=== PATIENT | female | born 1940 | race Caucasian/White ===

== ENCOUNTER 2021-08-15 10:45 | Emergency (ER) | payer MEDICARE, MEDICAID, SELFPAY ==
--- NOTE | ~2021-08-15 | XR_ITS ---
EXAMINATION: XR wrist RT min 3V DATE: 08/15/2021 11:49 INDICATION: Right wrist pain post fall TECHNIQUE: Posteroanterior, ulnar deviation, oblique, and lateral views of the right wrist were obtai tameka. COMPARISON: none FINDINGS: Comminuted intra-articular fracture of the distal right radius with dorsal predominant impaction resu lting in approximately 20 degrees dorsal tilt of the distal articular surface. There is approximately 2 mm fracture gap and 1 mm incongruity at the articular surface at the ulnar side of the scaphoid fo ssa. There appears to be dorsal intercalated segment instability (DISI) along with severe osteoarthri tis at the radioscaphoid articulation of the wrist joint consistent with secondary scapholunate advan chandni collapse (SLAC) wrist. Additional moderate osteoarthritis at the first carpometacarpal joint. Cho ndrocalcinosis at the triangular fibrocartilage complex. IMPRESSION: 1. Comminuted intra-articular fracture of the distal right radius with dorsal predominant impaction. 2. 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 Reviewed, dictated and finalized at location A. IMPRESSION: 1. Comminuted intra-articular fracture of the distal right radius with dorsal p redominant impaction. 2. 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
[2021-08-15 10:52] VITALS: BP 139/77; PULSE 67; RESP 18; TEMP 36.6; O2SAT 97
--- NOTE | 2021-08-15 11:57 | ED.UPPEXIN ---
HPI - Extremity Injury (Upper) General Chief Complaint: Extremity Injury, Upper Stated Complaint: ambulance Time Seen by Provider: 08/15/21 10:47 Source: patient, EMS and RN notes reviewed Mode of arrival: EMS Limitations: no limitations History of Present Illness MD complaint: injury to: right and wrist Onset (ago): hour(s) (1) Other injuries: none Place: home Severity scale (1-10): 9 Relieving factors: immobilization Exacerbating factors: movement of extremity Context: fall Associated symptoms: denies other symptoms Related Data Home Medications Medication Instructions Recorded Confirmed acetaminophen [Pain Relief] 500 mg PO Q4-6H PRN 10/29/19 08/15/21 carvedilol 3.125 mg PO BID 10/29/19 08/15/21 escitalopram oxalate 20 mg PO DAILY 10/29/19 08/15/21 potassium chloride 10 meq PO DAILY 10/29/19 08/15/21 pravastatin 40 mg PO DAILY 10/29/19 08/15/21 quetiapine 25 mg PO HS 10/29/19 08/15/21 bupropion HCl 75 mg PO DAILY 08/15/21 08/15/21 calcium carbonate-vitamin D3 2 tablet PO DAILY 08/15/21 08/15/21 [Calcium + D] furosemide 40 mg PO TID 08/15/21 08/15/21 Allergies Allergy/AdvReac Type Severity Reaction Status Date / Time clonazepam Allergy Intermediate Verified 09/03/11 14:24 Hay Allergy Intermediate Uncoded 05/08/18 14:28 Review of Systems Review of Systems: All systems reviewed & are unremarkable except as noted in HPI and below Musculoskeletal: Musculoskeletal: Reports as per HPI (painful right wrist) PMFSH Past Medical History Medical History (Updated 08/15/21 @ 13:16 by Jose Negro MD) Anxiety Depression Dyslipidemia Hypertension Stomach neoplasm Surgical History Surgical History H/O tubal ligation History of appendectomy History of bilateral knee arthroplasty Social History Social History Smoking status: Never smoker Alcohol intake: never Substance use: never Exam Const: General: healthy appearing, no acute distress and alert Nutritional Appearance: well nourished Orientation/consciousness: patient oriented x3 Limitations: no limitations HENMT: Head: normal to inspection Ears: external ears normal and TM's normal bilaterally General nose exam: Normal external nose present and Normal nares present Face and sinus: normal facial exam Mouth: Yes lip normal and Yes moist mucous membranes Teeth and gingiva: dentition normal Eyes: Conjunctivae: conjunctivae normal Pupils: Equal, round and reactive pupils present EOM: EOMs intact bilaterally Neck: Neck: normal visual inspection and no lymphadenopathy Chest: Chest palpation & inspection: normal inspection of the chest Resp: Effort & Inspection: normal respiratory effort Auscultation: clear to auscultation bilaterally Cardio: Rate: regular rate Rhythm: regular rhythm GI: GI Palp: Yes Soft to palpation and No Tenderness to palpation present (GI) Percussion: Yes normal to percussion Auscultation: normal bowel sounds : General: Yes bladder normal to palpation and Yes no CVA tenderness Back/Spine/Pelvis: Back: no CVA tenderness Skin: General skin exam: normal color Rashes: no rashes Wounds: no wounds Neuro: General: patient oriented x3, moves all extremities, no meningeal signs, no focal motor deficits and CN's II-XI intact bilaterally Extrem: Other: mildly swollen right wrist with minimal radial deformity. no acute neurovascular deficit. no other acute injury. Psych: Appearance: grossly normal and well kempt Mental Status: mental status grossly normal Affect: normal affect Attitude: cooperative Thought content: Yes Normal thought content present Course Course Emergency Course: Pt was stable in the ED, less painful Reevaluation(s) Date: 08/15/21 Time: 11:41 Vital Signs Vital signs: Vital Signs Temperature 36.6 C 08/15/21 10:52 Pulse Rate 67 08/15/21 10:52 Respiratory Rate 18
[2021-08-15] MEDS: KETOROLAC (*BKC) 60 MG/2 ML VIAL IM (12:08)
[2021-08-15 13:18] VITALS: BP 146/71; PULSE 80; RESP 16; O2SAT 98
== END 2021-08-15 13:34 | disposition home or self-care (01) ==
PROVIDERS: Emergency Provider Emergency Medicine; PCP Family Medicine
DX: S52.91XA Unspecified fracture of right forearm, initial encounter for closed fracture (principal); W19.XXXA Unspecified fall, initial encounter; E78.5 Hyperlipidemia, unspecified; I10 Essential (primary) hypertension
CPT/HCPCS: 29125; 73110; 99283; 99284; A4565; J1885

== ENCOUNTER 2021-08-28 09:43 | Outpatient (NON) | payer MEDICARE, SELFPAY ==
[2021-08-28 09:59] LABS: Hematocrit 42.2 % (35.0-42.0); Hemoglobin 13.8 g/dL (11.7-13.8); Mean Corpuscular HGB Conc 32.7 g/dL (32.0-36.0); Mean Corpuscular Hemoglobin 29.6 pg (27.0-31.0); Mean Corpuscular Volume 90.6 fL (78.0-102.0); Mean Platelet Volume 10.4 fl (9.2-11.8); Platelet Count Result 275 K/mm3 (150-420); Red Blood Count 4.66 M/mm3 (4.20-5.40); Red Cell Distribution Width 13.3 % (11.6-14.4); White Blood Count 5.8 K/mm3 (4.8-10.8)
[2021-08-28 10:23] LABS: Alanine Aminotransferase 23 U/L (14-59); Albumin Level 3.4 g/dL (3.4-5.0); Alkaline Phosphatase 129 U/L (46-116); Anion Gap 12 mmol/L (8-16); Aspartate Amino Transferase 21 U/L (15-37); Bilirubin,Total 0.5 mg/dL (0.00-1.00); Blood Urea Nitrogen 16 mg/dL (7-18); Carbon Dioxide 30 mmol/L (21-32); Chloride 102 mmol/L (98-108); Estimated Glomerular Filt Rate 51; Glucose 105 mg/dL (70-99); Osmolality Calculated 299 mOsm/kg (285-295); Potassium 3.5 mmol/L (3.5-5.1); Sodium 144 mmol/L (136-145); Total Protein 6.8 g/dL (6.4-8.2)
== END 2021-08-28 09:44 | disposition home or self-care (01) ==
LOC: CHSLAB 09:44
PROVIDERS: Visit Provider Family Medicine
DX: I10 Essential (primary) hypertension (principal)
CPT/HCPCS: 36415; 80053; 85027

== ENCOUNTER 2021-09-07 12:13 | Outpatient (CLI) | payer MEDICARE, MEDICAID, SELFPAY ==
--- NOTE | ~2021-09-07 | DEXA_ITS ---
Bone Density Report Name: Eva Alatorre Age: 80 Sex: Female Ethnicity: White Date of : 1940 Indication: postmenopausal; screening for osteoporosis; height loss; prior fracture; Referring Provider: Konrad Williamson Study: Bone densitometry was performed. Exam Date: September 07, 2021 Accession number: [id number] Bone Density: Region BMD T-score Z-score Classification AP Spine(L1-L4) 1.013 -0.3 2.5 Normal Femoral Neck (Left) 0.648 -1.8 0.6 Osteopenia Total Hip (Left) 0.760 -1.5 0.7 Osteopenia Femoral Neck (Right) 0.561 -2.6 -0.2 Osteoporosis Total Hip (Right) 0.727 -1.8 0.5 Osteopenia Femoral Neck Mean 0.605 -2.2 0.2 Osteopenia Total Hip Mean 0.743 -1.6 0.6 Osteopenia World Health Organization criteria for BMD impression classify patients as: Normal (T-score at or above -1.0), Osteopenia (T-score between -1.0 and -2.5), or Osteoporosis (T-score at or below -2.5). 10-year Fracture Risk: FRAX not reported because: Some T-score for Spine Total or Hip Total or Femoral Neck at or below -2.5 Clinical Information Provided by Patient: Has had a low trauma fracture Has used the following medications: Vitamin D, Calcium Patient maximum height was 61 Menopause Age: 43 Onset of menses at age 9 Number of children 3 Impression: The patient has established osteoporosis, based on the Right Femoral Neck T-score and the existence of a prior fracture. The patient has risk factors, including: previous fracture. Discussion: HIGH RISK OF FRACTURE. BONE DENSITY IS UNDESIRABLY LOW AT ONE OR MORE SKELETAL SITES, CONSISTENT WITH POSTMENOPAUSAL OSTEOPOROSIS. This patient's lowest T-score, in a patient who has previously fractured, meets the World Health Organization's (WHO) criteria for severe osteoporosis. In untreated patients, the risk of osteoporotic fracture increases approximately two-fold for each 1.0 SD decrease in T-score. Low bone density is not the only risk factor for fracture; also consider factors such as patient's age, frailty or poor health, risk of falling, risk of injury, previous osteoporotic fracture, family history of osteoporosis, cigarette smoking, low body weight, etc. Not everyone with low bone mineral density has osteoporosis; osteomalacia and other metabolic bone disorders should also be considered. Patients who have osteoporosis should be evaluated for specific diseases and conditions (secondary causes) that may cause or contribute to bone loss. The [place] [employer] Endocrinologists (AACE) and National Osteoporosis Foundation (NOF) recommend pharmacologic intervention for all postmenopausal women whose T-score is in this range. The patient should follow a healthful lifestyle (good nutrition with adequate calcium and vitamin D, and appropriate weight-
--- NOTE | 2021-09-07 12:21 | ECHO_ITS ---
Patient Info Name: Eva Alatorre Age: 80 years : 1940 Gender: Female Ht: 61 in Wt: 178 lbs BSA: 1.90 m2 HR: 68 bpm BP: 152 / 71 mmHg Exam Date: 09/07/2021 1:39 PM Exam Location: [facility] Patient Status: Outpatient Admit Date: 09/07/2021 Staff Ordering Physician: Konrad Williamson DO Head Chef: Armand Obrien RDCS, RT Attending Provider: Konrad Williamson DO Referring Physician: Teri BORJAS; Exam Type: CA echo doppler color flow Study Info Indications I50.9 - Heart failure, unspecified Complete two-dimensional, color flow and Doppler transthoracic echocardiogram is performed. Strain analysis performed. Summary 1. Complete two-dimensional, color flow and Doppler transthoracic echocardiogram is performed. 2. Left ventricular chamber dimension is normal. 3. Left ventricular systolic function is normal, estimated at 60-65%. 4. The left ventricular diastolic function is grade I diastolic dysfunction. 5. E/e' 6 is not elevated. 6. Global longitudinal strain is normal at -21.4%. 7. Right atrial chamber dimension is mildly enlarged. 8. There is mild aortic valve sclerosis. 9. There is moderate to severe tricuspid valve regurgitation. 10. No pulmonary hypertension, estimated pulmonary arterial systolic pressure is 36 mmHg. Left Ventricle E/e' 6 is not elevated. Global longitudinal strain is normal at -21.4%. Left ventricular chamber dimension is normal. Left ventricular systolic function is normal, estimated at 60-65%. The left ventricular diastolic function is grade I diastolic dysfunction. Right Ventricle Right ventricular systolic function is normal and with normal TAPSE 2.0 cm.. Right ventricular chamber dimension is normal. Left Atria Left atrial chamber dimension is normal. Right Atria Right atrial chamber dimension is mildly enlarged. Aortic Valve The aortic valve is trileaflet. There is mild aortic valve sclerosis. There is no aortic valve stenosis. There is no aortic valve regurgitation. Pulmonic Valve There is no pulmonic regurgitation. Mitral Valve There is no mitral valve stenosis. There is no mitral valve regurgitation. Tricuspid Valve There is moderate to severe tricuspid valve regurgitation. No pulmonary hypertension, estimated pulmonary arterial systolic pressure is 36 mmHg. Pericardium/Pleural There is no pericardial effusion. Inferior Vena Cava Normal inferior vena cava with >50% collapse upon inspiration consistent with normal right atrial pressure, 5 mmHg. Aorta The aortic root size at the sinus of Valsalva is normal. Left Ventricular Outflow Tract Name Value Normal LVOT 2D LVOT Diameter 1.9 cm LVOT Doppler LVOT Peak Velocity 77 cm/s LVOT Peak Gradient 2 mmHg LVOT Mean Gradient 1 mmHg LVOT VTI 20 cm LVOT VTI/AV VTI Ratio 0.7 LVOT Stroke Volume 58 ml Mitral Valve Name
== END 2021-09-07 12:14 | disposition home or self-care (01) ==
LOC: CHSIMG 12:19
PROVIDERS: PCP Family Medicine; Visit Provider Family Medicine
DX: Z78.0 Asymptomatic menopausal state (principal); I10 Essential (primary) hypertension
CPT/HCPCS: 77080; 93306

== ENCOUNTER 2021-10-16 09:40 | Outpatient (RCR) | payer MEDICARE, OTHER, MEDICAID, SELFPAY ==
--- NOTE | 2021-10-16 11:06 | OTOPEVAL ---
Thank you for referring Eva Alatorre to [facility].? The patient is scheduled to be seen for therapy? ____x/week for ___ weeks. Please review, sign, date and return this plan of care RAFIQ. I agree with and certify that the following plan of care is medically necessary. Referring Physician Date Admitting Provider: Attending Provider: Trisha Lawson, TIMING INSPECTOR Referring Provider: *OT Outpatient Evaluation Start: 10/16/21 08:17 Freq: Status: Active Protocol: Document 10/16/21 09:46 [facility] [place]Rec: 10/16/21 11:05 [facility] [place] [id number] Therapy Assessment Status Assessment Status Assessment Status Evaluation Outpatient Past Medical History Cardiovascular History Hx Hypercholesterolemia Yes Hx Hypertension Yes Gastrointestinal History Hx Appendectomy Yes Hx Gastroesophageal Reflux Disease Yes Musculoskeletal History Hx Osteoporosis Yes Reproductive History Hx Post Menopausal Yes Psychosocial History Hx Anxiety Yes Hx Depression Yes Other History Hx Cancer Yes: SKIN Evaluation Information Problem Diagnosis Decreased ROM and strength of the R wrist Onset 09/28/21 Cause R distal radius fracture Subjective Information Patient reports that she fell Query Text:As Reported By Patient/ and broke her R wrist but is Family unsure of when it was, states a couple months ago. Patient reports that the caregivers at assisted living have had to help her more since she fractured her wrist. Patient reports that tying her shoes and getting dressed are difficult to do. Quick DASH: 52.3% Prior Level of Function Activity Level (Last 3 Months) Hand Dominance Right Activity of Daily Living Ability Independent Indoor/Home Mobility Independent Community Mobility Needs Some Help Stairs Ability Not-Applicable Functional Cognition (Planning, Shopping Needs Some Help , Taking Medications) Cooking No Cleaning No Laundry No Shopping No Driving No Home Setting Home Type Assisted Living Facility Support Available None Pain Assessment Timing of Pain Assessment Timing of Pain Assessment Assessment Self Report Self Report Pain Level
--- NOTE | 2021-11-14 14:48 | OTOPEVAL ---
Thank you for referring Eva Alatorre to [facility] The patient is scheduled to be seen for therapy? ____x/week for ___ weeks. Please review, sign, date and return this plan of care RAFIQ. I agree with and certify that the following plan of care is medically necessary. Referring Physician Date Admitting Provider: Attending Provider: Trisha Lawson, PARAFFIN MACHINE OPERATOR Referring Provider: *OT Outpatient Evaluation Start: 10/16/21 08:17 Freq: Status: Active Protocol: Document 11/14/21 13:53 [facility] [place]Rec: 11/14/21 14:48 [facility] [id number] Therapy Assessment Status Assessment Status Assessment Status Discharge Outpatient Past Medical History Cardiovascular History Hx Hypercholesterolemia Yes Hx Hypertension Yes Gastrointestinal History Hx Appendectomy Yes Hx Gastroesophageal Reflux Disease Yes Musculoskeletal History Hx Osteoporosis Yes Reproductive History Hx Post Menopausal Yes Psychosocial History Hx Anxiety Yes Hx Depression Yes Other History Hx Cancer Yes: SKIN Evaluation Information Problem Subjective Information Patient arrives to OT this Query Text:As Reported By Patient/ date and reports that her R Family wrist hurts sometimes but overall it is doing well. She reports that she has been using it and would like to be finished with therapy. Pain Assessment Timing of Pain Assessment Timing of Pain Assessment Re-assessment Self Report Self Report Pain Level 0 Pain Score Pain Score 0: Self Report Upper Extremity Range of Motion Wrist Range of Motion Right Wrist Flexion - Active 35 Wrist Extension - Active 40 Upper Extremity Muscle Strength Testing Wrist Strength Right Wrist Flexion Strength 4+ Good + Wrist Extension Strength 4+ Good + General Exercise General Exercises Side Right Exercise Description AAROM R wrist flexion/ Query Text:Record Sets, Reps, extension, holding 20 seconds Resistance, and Position x 3 reps each direction AROM R wrist circles 1x15 in both clockwise and counter clockwise AROM R hook fist 1x10 AROM R flat fist 1x10 AROM R composite fist 1x10 AROM R intrinsic plus 1x10 1# resisting R wrist extension , 15 reps x 2 sets B wrist flexion/extension with
== END 2021-11-14 15:17 | disposition home or self-care (01) ==
LOC: CHSOT 09:40
PROVIDERS: Visit Provider Nurse Practitioner Family
DX: S52.571D Other intraarticular fracture of lower end of right radius, subsequent encounter for closed fracture with routine healing (principal)
CPT/HCPCS: 97014; 97110; 97140; 97165; G0283

== ENCOUNTER 2024-10-10 19:25 | Emergency (ER) | payer MEDICARE, MEDICAID, SELFPAY ==
--- NOTE | ~2024-10-10 | XR_ITS ---
EXAM: XR knee LT 3V DATE: 10/10/2024 20:20 HISTORY: total knee replacement 10 YRS AGO. LEFT KNEE PAIN X 1 MONTH. . COMPARISON: 09/10/2012. FINDINGS: Normal mineralization. No fracture or dislocation. No lytic or blastic lesion. Left total knee arthroplasty hardware, without complication. No erosion or periosteal change. Moderate volume milly int effusion. IMPRESSION: No acute osseous finding in the left knee. Reviewed, dictated and finalized at location K. SMISSION TESTER
--- NOTE | 2024-10-10 19:39 | ED.LOWEXIN ---
HPI - Extremity Injury (Lower) General Chief Complaint: Extremity Problem,Nontraumatic Stated Complaint: LOWER EXTREMITY PROBLEM Time Seen by Provider: 10/10/24 19:38 Source: patient Mode of arrival: ambulatory Limitations: no limitations History of Present Illness HPI Narrative: 84-year-old female, assisted living resident with a history of anxiety /depression, hypertension, dyslipidemia, diastolic CHF, bilateral knee arthroplasty presents to the ED with with a 2 week history of -- worsening left knee pain. patient is also noted to have left knee swelling with decreased range of motion. The patient has been using a walker. The pain has gotten progressively worse and is affecting her walking. No history of trauma. No history of falls. The patient had been on acetaminophen for her pain. Onset (ago): week(s) ( Two weeks) Injury: Left: knee Type of Injury: other ( no injury) Relieving factors: immobilization Exacerbating factors: weight bearing and movement Associated symptoms: able to partially bear weight Other symptoms: none Related Data Home Medications ?Medication ?Instructions ?Recorded ?Confirmed ?Last Taken ?Type calcium 600 mg (as 2 tablet PO DAILY 08/15/21 10/10/24 Unknown History carbonate)-vitamin D3 5 mcg (200 unit) tablet Lactobacillus acidoph-L.bulgaricus 1 tablet PO DAILY 10/10/24 10/10/24 Unknown History 1 million cell tablet Allergies Allergy/AdvReac Type Severity Reaction Status Date / Time clonazepam Allergy Unknown Unknown Verified 07/23/24 16:34 Hay Allergy Intermediate Unknown Uncoded 07/23/24 16:34 Review of Systems Review of Systems: All systems reviewed & are unremarkable except as noted in HPI and below Constitutional: Constitutional: Reports as per HPI and Reports no additional constitutional complaints Eyes: Eyes: Reports as per HPI and Reports no additional eye complaints ENT: Reports system reviewed and no additional complaints, except as documented and Reports as per HPI Cardiovascular: Cardiovascular: Reports as per HPI and Reports no additional cardiovascular complaints Respiratory: Respiratory: Reports as per HPI and Reports no additional respiratory complaints Gastrointestinal: Gastrointestinal: Reports as per HPI and Reports no additional gastrointestinal complaints Genitourinary: Genitourinary: Reports no additional female genitourinary complaints and Reports as per HPI Musculoskeletal: Musculoskeletal: Reports no additional musculoskeletal complaints Comments: chronic knee pain which is worse on the left side. Integumentary/Breasts: Skin/Breast: Reports system reviewed and no additional complaints, except as docu and Reports as per HPI Neurologic: Reports system reviewed and no additional complaints, except as documented Psychiatric: Psychiatric: Reports no additional psychiatric complaints and Reports as per HPI Endocrine: Endocrine: Reports no additional endocrine complaints and Reports as per HPI Hematologic/Lymphatic: Hematologic/Lymphatic: Reports no additional hematologic/lymphatic complaints and Reports as per HPI Allergic/Immunologic: Allergic/Immunologic: Reports no additional allergic/immunologic complaints and Reports as per HPI [facility] Past Medical History Medical History (Updated 10/10/24 @ 20:42 by Perez Cruz MD) Stomach neoplasm Depression Anxiety Dyslipidemia Hypertension Surgical History Surgical History History of appendectomy History of bilateral knee arthroplasty H/O tubal ligation Social History Social History Smoking status: Never smoker Alcohol intake: never Substance use: never Living arrangements: assisted living Exam Narrative: Blood pressure is stable. Afebrile. Const: General: healthy appearing Nutritional Appearance: well nourished Orientation/consciousness: patient oriented x3 Limitations: no limitations HENMT: Head: normal to inspection Ears: external ears normal Face/Nose/Sinus: Normal external nose present Face and sinus: normal facial exam Mouth: Yes Normal oral and palatal mucosa present Throat: posterior oropharynx normal Eyes: Conjunctivae: conjunctivae normal Pupils: Equal, round and reactive pupils present EOM: EOMs intact bilaterally Direct Ophthalmoscopy: no photophobia Neck: Neck: normal visual inspection, no lymphadenopathy and no meningeal signs Chest: Chest palpation & inspection: normal inspection of the chest Resp: Effort & Inspection: normal respiratory effort Auscultation: clear to auscultation bilaterally Cardio: Rate: regular rate Rhythm: regular rhythm GI: GI Palp: Yes Soft to palpation Other: No tenderness/ rigidity /rebound. : General: Yes no CVA tenderness Back/Spine/Pelvis: Back: no CVA tenderness Skin: Other: Chronic venous stasis changes both legs. Neuro: General: patient oriented x3, moves all extremities, no meningeal signs, no focal motor deficits and CN's II-XI intact bilaterally Cranial nerves: Yes Nystagmus not present Speech: normal speech Extrem: Other: Left knee-- status post total knee replacement. Left knee is swollen. Decreased range of motion. Tenderness on palpation of the knee. Psych: Mental Status: mental status grossly normal Affect: normal affect Attitude: cooperative Course Course Emergency Course: Left knee pain/swelling/ decreased range of motion. Status post total knee replacement x-ray did not show any acute finding. The patient is noted to have left knee effusion. Vital Signs Vital signs: Vital Signs Temperature 37.3 C 10/10/24 19:40 Pulse Rate 71 10/10/24 19:40 Respiratory Rate 20 10/10/24 19:40 Blood Pressure 144/56 H 10/10/24 19:40 Pulse Oximetry 95 10/10/24 19:40 Oxygen Delivery Room Air 10/10/24 19:40 Temperature 37.3 C 10/10/24 19:40 Pulse Rate 71 10/10/24 19:40 Respiratory Rate 20 10/10/24 19:40 Blood Pressure 144/56 H 10/10/24 19:40 Pulse Oximetry 95 10/10/24 19:40 Oxygen Delivery Room Air 10/10/24 19:40 MDM - Extremity Injury (Lower) MDM Narrative Medical decision making narrative: Left knee pain/effusion Differential Diagnosis Differential diagnosis: Likely other ( knee fracture. Loosening of prosthesis.) Discharge Plan Discharge Clinical Impression: Effusion of knee joint, left Knee pain, left Qualifiers: Chronicity: chronic Qualified Code(s): M25.562 - Pain in left knee Patient Disposition: Home, Self-Care Condition: Stable Instructions: Antibiotic Form, Swollen Knee Joint (ED), Knee Pain (ED) Patient Language: Dominican Prescriptions: New tramadol 50 mg tablet 50 mg PO Q6-8H PRN (Reason: pain) Qty: 10 0RF No Action calcium carbonate-vitamin D3 [Calcium + D] 600 mg(1,500mg) -200 unit Tablet 2 tablet PO DAILY acetaminophen [Tylenol] 325 mg capsule 650 mg PO Q8H PRN (Reason: pain) Qty: 30 0RF Lactobacillus acidoph-L.bulgar 1 million cell tablet 1 tablet PO DAILY loratadine [Allergy Relief (loratadine)] 10 mg tablet 10 mg PO DAILY Qty: 30 0RF potassium chloride 10 mEq tablet extended release See Rx Instructions .ROUTE .COMPLEX Qty: 30 5RF Dose Instruction: TAKE ONE TABLET BY MOUTH EVERY DAY --AM-- Rx Instructions: TAKE ONE TABLET BY MOUTH EVERY DAY --AM-- escitalopram oxalate 20 mg tablet See Rx Instructions .ROUTE .COMPLEX Qty: 30 5RF Dose Instruction: TAKE 1 TABLET BY MOUTH DAILY -AM- Rx Instructions: TAKE 1 TABLET BY MOUTH DAILY -AM- carvedilol 3.125 mg tablet See Rx Instructions .ROUTE .COMPLEX Qty: 60 0RF Dose Instruction: TAKE 1 TABLET BY MOUTH TWO TIMES DAILY Rx Instructions: TAKE 1 TABLET BY MOUTH TWO TIMES DAILY furosemide 40 mg tablet See Rx Instructions .ROUTE .COMPLEX Qty: 90 5RF Dose Instruction: TAKE 1 TABLET BY MOUTH 3 TIMES A DAY -ANPM- Rx Instructions: TAKE 1 TABLET BY MOUTH 3 TIMES A DAY -ANPM- bupropion HCl 75 mg tablet See Rx Instructions .ROUTE .COMPLEX Qty: 30 5RF Dose Instruction: TAKE 1 TABLET BY MOUTH DAILY -AM- Rx Instructions: TAKE 1 TABLET BY MOUTH DAILY -AM- alendronate 70 mg tablet See Rx Instructions .ROUTE .COMPLEX Qty: 4 5RF Dose Instruction: TAKE 1 TABLET BY MOUTH WEEKLY MONDAYS. TAKE BEFORE OTHER MEDS DO NOT LAY DOWN FOR 30 MINUTES.-AMM- Rx Instructions: TAKE 1 TABLET BY MOUTH WEEKLY MONDAYS. TAKE BEFORE OTHER MEDS DO NOT LAY DOWN FOR 30 MINUTES.-AMM- pravastatin 40 mg tablet See Rx Instructions .ROUTE .COMPLEX Qty: 30 5RF Dose Instruction: TAKE 1 TABLET BY MOUTH ONCE DAILY -HS- Rx Instructions: TAKE 1 TABLET BY MOUTH ONCE DAILY -HS- Follow-up/Referrals: Konrad Williamson DO [Primary Care Provider] - Time of Disposition: 20:45
[2024-10-10 19:40] VITALS: BP 144/56; PULSE 71; RESP 20; TEMP 37.3; O2SAT 95
[2024-10-10] MEDS: ONDANSETRON HCL ODT 4 MG TABLET PO (20:12)
[2024-10-10] MEDS: HYDROmorphone HCL INJ (*CRX) 2 MG/ML VIAL 0.5 MG IM (20:13)
[2024-10-10 21:00] VITALS: BP 140/85; PULSE 84; RESP 20; O2SAT 95
--- OUTSIDE RECORDS SUMMARY | 2024-10-15 03:43 | XMS_ITS | Encounter Summary ---
Author Organization [facility] - [facility] Address [address] [place] [address]. [place], [place] [id number] [place] [address] Care Team Providers Care Waste Duster Name Role Phone Konrad Williamson DO Primary Care Provider [phone] Encounter Details Date Type Department Care Team (Latest Contact Info) Description 10/24/2021 Travel Social History Tobacco Use Types Packs/Day Years Used Date Smoking Tobacco: Never Smokeless Tobacco: Never Alcohol Use Standard Drinks/Week Comments Not Currently 0 (1 standard drink = 0.6 oz pur e alcohol) Comments Unknown Sex and Gender Information Value Date Recorded Sex Assigned at Not on file Legal Sex Female 10:59 PM BRINE PROCESS OPERATOR Gender Identity Not on file Sexual Orientation Not on file COVID-19 Exposure Response Date Recorded In the last month, have you been in contact with someone who was confirmed or suspected to have Coronavirus / COVID-19? No / Unsure 10/24/2021 10:47 AM BRINE PROCESS OPERATOR documented as of this encounter Plan of Treatment Not on file documented as of this encounter Visit Diagnoses Not on filedocumented in this encounter Care Teams Waste Duster Relationship Specialty Start Date End Date Konrad Williamson DO [address] [place] [address] PCP - General FAMILY PRACTICE 08/31/21 documented as of this encounter
--- OUTSIDE RECORDS SUMMARY | 2024-10-15 03:43 | XMS_ITS | Encounter Summary ---
Author Organization [facility] Address [address] [place] [address]. [place], [place] [id number] [place] [address] Care Team Providers Care Medical Stenographer Name Role Phone Konrad Williamson DO Primary Care Provider [phone] Encounter Details Date Type Department Care Team (Latest Contact Info) Description 09/28/2021 Travel Social History Tobacco Use Types Packs/Day Years Used Date Smoking Tobacco: Never Smokeless Tobacco: Never Alcohol Use Standard Drinks/Week Comments Not Currently 0 (1 standard drink = 0.6 oz pur e alcohol) Comments Unknown Sex and Gender Information Value Date Recorded Sex Assigned at Not on file Legal Sex Female 10:59 PM CONCRETE SMOOTHER Gender Identity Not on file Sexual Orientation Not on file COVID-19 Exposure Response Date Recorded In the last month, have you been in contact with someone who was confirmed or suspected to have Coronavirus / COVID-19? No / Unsure 09/28/2021 9:14 AM CONCRETE SMOOTHER documented as of this encounter Plan of Treatment Not on file documented as of this encounter Visit Diagnoses Not on filedocumented in this encounter Care Teams Medical Stenographer Relationship Specialty Start Date End Date Konrad Williamson DO [address] [place] [address] PCP - General FAMILY PRACTICE 08/31/21 documented as of this encounter
--- OUTSIDE RECORDS SUMMARY | 2024-10-15 03:43 | XMS_ITS | Clinical Summary ---
Author Organization [facility] Address [address] [place] [address]. [place], [place] [id number] [place] [address] Care Team Providers Care Cruller Maker Name Role Phone Konrad Williamson DO Primary Care Provider [phone] Allergies Active Allergy Reactions Criticality Noted Date Comments Clonazepam Other (see comment) 08/31/2021 confussion Medications escitalopram 20 MG tablet Take 20 mg by mouth daily. Active potassium chloride CR 10 MEQ tablet Take 10 mEq by mouth 2 (two) times daily. Active buPROPion 75 MG tablet Take 75 mg by mouth 2 (two) times daily. Active furosemide 40 MG tablet Take 40 mg by mouth daily. Active calcium carb-cholecalci ferol 250-125 MG-UNIT tablet Take 1 tablet by mouth daily. Active pravastatin 40 MG tablet Take 40 mg by mouth nightly at bedtime. Active probiotic Cap capsule Take 1 capsule by mouth 3 (three) times daily with meals. Active QUEtiapine 25 MG tablet Take 25 mg by mouth nightly at bedtime. Active carvedilol 3.125 MG tablet Take 3.125 mg by mouth 2 (two) times daily. Active acetaminophen 500 MG tablet Take 500 mg by mouth every 6 (six) hours as needed for Pain. Active traMADol 50 MG tablet Take 50 mg by mouth 2 (two) times daily as needed. 08/15/2021 Active alendronate 70 MG tablet Take 70 mg by mouth daily. 09/14/2021 Active Active Problems Problem Noted Date Diagnosed Date Other closed intra-articular fracture of distal end of right radius with routine healing, subsequent encounter 08/31/2021 Family History Relation Status Comments Father Mother Social History Tobacco Use Types Packs/Day Years Used Date Smoking Tobacco: Never Smokeless Tobacco: Never Alcohol Use Standard Drinks/Week Comments Not Currently 0 (1 standard drink = 0.6 oz pur e alcohol) Comments Unknown Sex and Gender Information Value Date Recorded Sex Assigned at Not on file Legal Sex Female 10:59 PM SALES EXECUTIVE Gender Identity Not on file Sexual Orientation Not on file Last Filed Vital Signs Vital Sign Reading Time Taken Comments Blood Pressure - - Pulse - - Temperature - - Respiratory Rate - - Oxygen Saturation - - Inhaled Oxygen Concentration - - Weight 77.1 kg (170 lb) 10/24/2021 10:50 AM SALES EXECUTIVE Height 154.9 cm (5' 1 ) 10/24/2021 10:50 AM SALES EXECUTIVE Body Mass Index 32.12 10/24/2021 10:50 AM SALES EXECUTIVE Plan of Treatment Health Maintenance Due Date Last Done Comments DTaP, Tdap and Td Vaccines (1 - Tdap) 1957 Zoster Vaccines (1 of 2) 1988 RSV Immunization or 60+ Years (1 - 1-dose 60+ series) 1998 Annual Medicare Wellness Visit 2003 Pneumococcal Vaccine: 65+ Years (1 of 1 - PCV) 2003 COVID-19 Vaccine (3 - season) 2024 12/22/2020, 12/01/2020 Influenza Adult (#1) 2024 08/21/2021, 08/03/2020, 07/31/2019, Additional history exists Meningococcal Vaccine Aged Out No nadia rosemary eligible based on patient's age to complete this topic RSV Immunizations Under 20 Months Aged Out No longer eligible based on patient's age to complete this topic Insurance MEDICAID MEDICARE Advance Directives Documents on File Type Date Recorded 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
--- OUTSIDE RECORDS SUMMARY | 2024-10-15 03:43 | XMS_ITS | Encounter Summary ---
Author Organization [facility] Address [address] [place] [address]. [place], [place] [address] [place] [address] Care Team Providers Care Vacuum Cleaner Mechanic Name Role Phone Konrad Williamson DO Primary Care Provider [phone] Reason for Visit * Reason Onset Date Comments Therapy Plans 10/10/2021 Encounter Details Date Type Department Care Team (Late st Contact Info) Description 10/10/2021 Telephone [facility] [place] [id number] Carrie Santoro RNFA Therapy Plans Social History Tobacco Use Types Packs/Day Years Used Date Smoking Tobacco: Never Smokeless Tobacco: Never Alcohol Use Standard Drinks/Week Comments Not Currently 0 (1 standard drink = 0.6 oz pur e alcohol) Comments Unknown Sex and Gender Information Value Date Recorded Sex Assigned at Not on file Legal Sex Female 10:59 PM CEMENT BREAKER Gender Identity Not on file Sexual Orientation Not on file COVID-19 Exposure Response Date Recorded In the last month, have you been in contact with someone who was confirmed or suspected to have Coronavirus / COVID-19? No / Unsure 09/28/2021 9:14 AM CEMENT BREAKER documented as of this encounter Progress Notes * RENU Galvan - 10/10/2021 3:32 PM CST [facility] would like for patient to attend outpatient therapy. Order faxed at this time [phone] NT BREAKER documented in this encounter Plan of Treatment Not on file documented as of this encounter Visit Diagnoses Not on filedocumented in this encounter Care Teams Vacuum Cleaner Mechanic Relationship Specialty Start Date End Date Konrad Williamson DO [address] [place] [address] PCP - General FAMILY PRACTICE 08/31/21 documented as of this encounter
--- OUTSIDE RECORDS SUMMARY | 2024-10-15 03:43 | XMS_ITS | Encounter Summary ---
Author Organization [facility] Address [address] [place] [address]. [place] [address] [place] [address] Care Team Providers Care Aircraft Maintenance Manager Name Role Phone Konrad Williamson DO Primary Care Provider [phone] Reason for Visit * Reason Comments Physical Therapy Encounter Details Date Type Department Care Team ([facility] st Contact Info) Description 10/19/[address] [place] [address] Scanned, Documents Physical Therapy Social History Tobacco Use Types Packs/Day Years Used Date Smoking Tobacco: Never Smokeless Tobacco: Never Alcohol Use Standard Drinks/Week Comments Not Currently 0 (1 standard drink = 0.6 oz pur e alcohol) Comments Unknown Sex and Gender Information Value Date Recorded Sex Assigned at Not on file Legal Sex Female 10:59 PM SENIOR BEHAVIORAL SCIENTIST Gender Identity Not on file Sexual Orientation Not on file COVID-19 Exposure Response Date Recorded In the last month, have you been in contact with someone who was confirmed or suspected to have Coronavirus / COVID-19? No / Unsure 10/24/2021 10:47 AM SENIOR BEHAVIORAL SCIENTIST documented as of this encounter Plan of Treatment Not on file documented as of this encounter Visit Diagnoses Not on filedocumented in this encounter Care Teams Aircraft Maintenance Manager Relationship Specialty Start Date End Date Konrad Williamson DO [address] [place] [address] PCP - General FAMILY PRACTICE 08/31/21 documented as of this encounter
--- OUTSIDE RECORDS SUMMARY | 2024-10-15 03:43 | XMS_ITS | Encounter Summary ---
Author Organization [facility] Address [address] [place] [address]. [place], [place] [address] [place] [address] Care Team Providers Care Lean Manager Name Role Phone Konrad Williamson DO Primary Care Provider [phone] Encounter Details Date Type Department Care Team (Late st Contact Info) Description 10/18/2021 Orders Only [facility] [place] [address] Chris Lawson, [facility] [address] [facility] [address] Social History Tobacco Use Types Packs/Day Years Used Date Smoking Tobacco: Never Smokeless Tobacco: Never Alcohol Use Standard Drinks/Week Comments Not Currently 0 (1 standard drink = 0.6 oz pur e alcohol) Comments Unknown Sex and Gender Information Value Date Recorded Sex Assigned at Not on file Legal Sex Female 10:59 PM PEN RIDER Gender Identity Not on file Sexual Orientation Not on file COVID-19 Exposure Response Date Recorded In the last month, have you been in contact with someone who was confirmed or suspected to have Coronavirus / COVID-19? No / Unsure 09/28/2021 9:14 AM PEN RIDER documented as of this encounter Plan of Treatment Not on file documented as of this encounter Results * XR WRIST RT MIN 3V (10/24/2021 12:53 PM PEN RIDER) Anatomical Region Laterality Modality Wrist Radiographic Ting ging 10/24/2021 1:13 PM PEN RIDER Impressions 10/24/2021 1:16 PM PEN RIDER IMPRESSION: 1. Healing changes of a comminuted impacted distal radial fracture, in unchanged alignment. 2. DISI deformity. Ordered By: CHRIS LAWSON Interpreted By: Mckinley Briscoe MD, 10/24/2021 1:13 PM Narrative 10/24/2021 1:16 PM PEN RIDER Examination: XR WRIST RT MIN 3V Exam time: 10/24/2021 12:53 PM Clinical history: Right wrist fracture recheck. Comparison: 09/28/2021 Technique: PA, lateral, and oblique views of the right wrist FINDINGS: Again seen is an impacted and comminuted distal radial fracture, in unchanged alignment. Again seen is mild callus formation along the fracture lines, minimally progressed from prior. No new fracture or dislocation is identified. Degenerative changes throughout the visualized wrist and hand. DISI deformity is again noted. Procedure Note Mckinley Briscoe MD - 10/24/2021 Examination: XR WRIST RT MIN 3V Exam time: 10/24/2021 12:53 PM Clinical history: Right wrist fracture recheck. Comparison: 09/28/2021 Technique: PA, lateral, and oblique views of the right wrist FINDINGS: Again seen is an impacted and comminuted distal radial fracture,in unchanged alignment. Again seen is mild callus formation along thefracture lines, minimally progressed from prior. No new fracture ordislocation is identified. Degenerative changes throughout the visualizedwrist and hand. DISI deformity is again noted. IMPRESSION: 1. Healing changes of a comminuted impacted distal radial fracture, inunchanged alignment. 2. DISI deformity. Ordered By: CHRIS LAWSON Interpreted By: Mckinley Briscoe MD, 10/24/2021 1:13 PM Chris Lawson OPTICAL STORE MANAGER-[facility] Final Resu lt documented in this encounter Visit Diagnoses Diagnosis Other closed intra-articular fracture of distal end of right radius with routine healing, subsequent encounter- Primary Other closed intra-articular fracture of distal end of right radius with routine healing, subsequent encounter documented in this encounter Care Teams Lean Manager Relationship Specialty Start Date End Date Konrad Williamson DO [address] [place] [address] PCP - General FAMILY PRACTICE 08/31/21 documented as of this encounter
--- OUTSIDE RECORDS SUMMARY | 2024-10-15 03:43 | XMS_ITS | Encounter Summary ---
Author Organization [facility] Address [address] [place] [address]. [place], [place] [address] [place] [address] Care Team Providers Care Lead Programmer Name Role Phone Konrad Williamson DO Primary Care Provider [phone] Reason for Visit * Reason Comments Fracture DOI:08/15/2021 RIGHT radius Encounter Details Date Type Department Care Team (Late st Contact Info) Description 10/24/2021 11:00 AM ANGLE SHEAR SET UP OPERATOR Office Visit [facility] [place] [address] Trisha Lawson, SUBSCRIPTION AGENT-[address] [place] [address] Cedrick Prabhakar MD [address] [place] [address] Fracture (DOI:08/15/2021 RIGHT radius) Social History Tobacco Use Types Packs/Day Years Used Date Smoking Tobacco: Never Smokeless Tobacco: Never Alcohol Use Standard Drinks/Week Comments Not Currently 0 (1 standard drink = 0.6 oz pur e alcohol) Comments Unknown Sex and Gender Information Value Date Recorded Sex Assigned at Not on file Legal Sex Female 10:59 PM ANGLE SHEAR SET UP OPERATOR Gender Identity Not on file Sexual Orientation Not on file COVID-19 Exposure Response Date Recorded In the last month, have you been in contact with someone who was confirmed or suspected to have Coronavirus / COVID-19? No / Unsure 10/24/2021 10:47 AM ANGLE SHEAR SET UP OPERATOR documented as of this encounter Last Filed Vital Signs Vital Sign Reading Time Taken Comments Blood Pressure - - Pulse - - Temperature - - Respiratory Rate - - Oxygen Saturation - - Inhaled Oxygen Concentration - - Weight 77.1 kg (170 lb) 10/24/2021 10:50 AM ANGLE SHEAR SET UP OPERATOR Height 154.9 cm (5' 1 ) 10/24/2021 10:50 AM ANGLE SHEAR SET UP OPERATOR Body Mass Index 32.12 10/24/2021 10:50 AM ANGLE SHEAR SET UP OPERATOR documented in this encounter Progress Notes * Cedrick Prabhakar MD - 10/24/2021 11:00 AM CST Chief Complaint: Fracture (DOI:08/15/2021 RIGHT radius) History of Present Illness: Eva Alatorre is a 81-year-old female who presents to the office for Fracture (DOI:08/15/2021 RIGHT radius) Patient states things are progressing well. She notes some soreness to entire RIGHT wrist. She is wearing a velcro brace about half the time. She states she has attended about 3 OT sessions at this time. Patient will take Tylenol at bedtime for pain with good relief. Patient resides at the [facility] in [place]. ROS: See HPI for pertinent positives Problem List: Patient Active Problem List Diagnosis ??? Other closed intra-articular fracture of distal end of right radius with routine healing, subsequent encounter History: Past Medical History: Diagnosis Date ??? COVID-19 vaccine series completed ??? High cholesterol ??? Hypertension Past Surgical History: Procedure Laterality Date ??? APPENDECTOMY ??? KNEE ARTHROPLASTY Bilateral ??? TUBAL LIGATION Family History Family history unknown: Yes Family Status Relation Name Status ??? Mother ??? Father Social History Socioeconomic History ??? Marital status: Single Spouse name: Not on file ??? Number of children: Not on file ??? Years of education: Not on file ??? Highest education level: Not on file Occupational History ??? Not on file Tobacco Use ??? Smoking status: Never Smoker ??? Smokeless tobacco: Never Used Vaping Use ??? Vaping Use: Never used Substance and Sexual Activity ??? Alcohol use: Not Currently ??? Drug use: Never ??? Sexual activity: Not on file Other Topics Concern ??? Not on file Social History Narrative ??? Not on file Social Determinants of Health Financial Resource Strain: Not on file Food Insecurity: Not on file Transportation Needs: Not on file Physical Activity: Not on file Stress: Not on file Social Connections: Not on file Intimate Partner Violence: Not on file Medications: Current Outpatient Medications: ??? acetaminophen 500 MG tablet, Take 500 mg by mouth every 6 (six) hours as needed for Pain., Disp: , Rfl: ??? alendronate 70 MG tablet, Take 70 mg by mouth daily., Disp: , Rfl: ??? buPROPion 75 MG tablet, Take 75 mg by mouth 2 (two) times daily., Disp: , Rfl: ??? calcium carb-cholecalciferol 250-125 MG-UNIT tablet, Take 1 tablet by mouth daily., Disp: , Rfl: ??? carvedilol 3.125 MG tablet, Take 3.125 mg by mouth 2 (two) times daily., Disp: , Rfl: ??? escitalopram 20 MG tablet, Take 20 mg by mouth daily., Disp: , Rfl: ??? furosemide 40 MG tablet, Take 40 mg by mouth daily., Disp: , Rfl: ??? potassium chloride CR 10 MEQ tablet, Take 10 mEq by mouth 2 (two) times daily., Disp: , Rfl: ??? pravastatin 40 MG tablet, Take 40 mg by mouth nightly at bedtime., Disp: , Rfl: ??? probiotic Cap capsule, Take 1 capsule by mouth 3 (three) times daily with meals., Disp: , Rfl: ??? QUEtiapine 25 MG tablet, Take 25 mg by mouth nightly at bedtime., Disp: , Rfl: ??? traMADol 50 MG tablet, Take 50 mg by mouth 2 (two) times daily as needed., Disp: , Rfl: Allergies Allergen Reactions ??? Clonazepam Other (see comment) confussion Objective: Body mass index is 32.12 kg/m??. Last Recorded Weight 10/24/21 1050 Weight: 77.1 kg (170 lb) Physical exam: Constitutional: Alert and in no acute distress. Neurological: The patient was oriented to person, place, and time. Eyes: The sclera and conjunctiva were normal ENT: Hearing was normal. Neck: The appearance of the neck was normal. Cardiovascular: Normal pulses. Pulmonary: No respiratory distress. Skin: No injuries or skin lesion. Musculoskeletal: Right wrist demonstrates about 15 degrees of wrist extension hand 10 degrees of wrist flexion. Her finger range of motion is actually better than the left side. She has minimal deformity that is apparent Results: X-ray demonstrates satisfactory healing of an impacted shortened right distal radius fracture with mild angulation Assessment: Encounter Diagnose(s) ICD-10-CM ICD-9-CM SNOMED CT(R) 1. Other closed intra-articular fracture of distal end of right radius with routine healing, subsequent encounter S52.571D V54.12 CLOSED FRACTURE OF DISTAL END OF RADIUS Plan: I have recommended discontinuing the patient's wrist brace. She is working with physical therapy tohelp with range of motion. I not have any activity restrictions and she indicates she is doing wellin regard to pain relief. She will return as needed Follow up: Return if symptoms worsen or fail to improve. CEDRICK PRABHAKAR MD E SHEAR SET UP OPERATOR documented in this encounter Plan of Treatment Not on file documented as of this encounter Visit Diagnoses Diagnosis Other closed intra-articular fracture of distal end of right radius with routine healing, subsequent encounter- Primary documented in this encounter Care Teams Lead Programmer Relationship Specialty Start Date End Date Konrad Williamson DO [address] [place] [address] PCP - General FAMILY PRACTICE 08/31/21 documented as of this encounter
--- OUTSIDE RECORDS SUMMARY | 2024-10-15 03:43 | XMS_ITS | Encounter Summary ---
Author Organization [facility] Address [address] [place] [address]. [place], [place] [address] [place] [address] Care Team Providers Care Spacecraft Systems Engineer Name Role Phone Konrad Williamson DO Primary Care Provider [phone] Encounter Details Date Type Department Care Team (Late st Contact Info) Description 09/28/2021 9:18 AM LOAD DISPATCHER LOCAL - 09/28/2021 11:59 PM LOAD DISPATCHER LOCAL Hospital Encounter [facility] [place] 2[place] Diagnostic Imaging [address] [place] [address] Chris Lawson, [facility] [address] [facility] [place] [address] Discharge Disposition: Home or Self Care (Routine Discharge) Social History Tobacco Use Types Packs/Day Years Used Date Smoking Tobacco: Never Smokeless Tobacco: Never Alcohol Use Standard Drinks/Week Comments Not Currently 0 (1 standard drink = 0.6 oz pur e alcohol) Comments Unknown Sex and Gender Information Value Date Recorded Sex Assigned at Not on file Legal Sex Female 10:59 PM LOAD DISPATCHER LOCAL Gender Identity Not on file Sexual Orientation Not on file COVID-19 Exposure Response Date Recorded In the last month, have you been in contact with someone who was confirmed or suspected to have Coronavirus / COVID-19? No / Unsure 09/28/2021 9:14 AM LOAD DISPATCHER LOCAL documented as of this encounter Medications at Time of Discharge acetaminophen 500 MG tablet Take 500 mg by mouth every 6 (six) hours as needed for Pain. alendronate 70 MG tablet Take 70 mg by mouth daily. 09/14/2021 buPROPion 75 MG tablet Take 75 mg by mouth 2 (two) times daily. calcium carb-cholecalcife rol 250-125 MG-UNIT tablet Take 1 tablet by mouth daily. carvedilol 3.125 MG tablet Take 3.125 mg by mouth 2 (two) times daily. escitalopram 20 MG tablet Take 20 mg by mouth daily. furosemide 40 MG tablet Take 40 mg by mouth daily. potassium chloride CR 10 MEQ tablet Take 10 mEq by mouth 2 (two) times daily. pravastatin 40 MG tablet Take 40 mg by mouth nightly at bedtime. probiotic Cap capsule Take 1 capsule by mouth 3 (three) times daily with meals. QUEtiapine 25 MG tablet Take 25 mg by mouth nightly at bedtime. traMADol 50 MG tablet Take 50 mg by mouth 2 (two) times daily as needed. 08/15/2021 documented as of this encounter Plan of Treatment Not on file documented as of this encounter Procedures Procedure Name Priority Date/Time Associated Diagnosis Comments XR WRIST RT MIN 3V Routine 09/28/2021 9: 46 AM LOAD DISPATCHER LOCAL Other closed intra-articular fracture of distal end of right radius, initial encounter documented in this encounter Results * XR WRIST RT MIN 3V (09/28/2021 9:46 AM LOAD DISPATCHER LOCAL) Anatomical Region Laterality Modality Wrist Radiographic Ting ging 09/29/2021 3:18 PM LOAD DISPATCHER LOCAL Impressions 09/29/2021 3:20 PM LOAD DISPATCHER LOCAL IMPRESSION: Healing distal radial fracture in stable alignment. Otherwise stable exam. Ordered By: CHRIS LAWSON Interpreted By: Azar Lomeli MD, 09/29/2021 3:18 PM Narrative 09/29/2021 3:20 PM LOAD DISPATCHER LOCAL Examination: Right wrist. Exam time: 0900 hours. Clinical history: Fracture follow-up. Comparison: 08/31/2021. Technique: Three views. Findings: Mildly displaced and impacted comminuted intra-articular fracture of the distal radius is again evident with overall stable alignment allowing for minor differences in projection. There is some sclerosis and resorption along the fracture lines, indicating healing. No new fracture is identified. 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 No other significant bone or joint abnormality is noted. Procedure Note Azar Lomeli MD - 09/29/2021 Examination: Right wrist. Exam time: 0900 hours. Clinical history: Fracture follow-up. Comparison: 08/31/2021. Technique: Three views. Findings: Mildly displaced and impacted comminuted intra-articularfracture of the distal radius is again evident with overall stablealignment allowing for minor differences in projection. There is somesclerosis and resorption along the fracture lines, indicating healing. Nonew fracture is identified. Degenerative changes in the wrist with DISIagain evident. First CMC joint osteoarthritis again evident. No othersignificant bone or joint abnormality is noted. IMPRESSION: Healing distal radial fracture in stable alignment. Otherwise stableexam. Ordered By: CHRIS LAWSON Interpreted By: Azar Lomeli MD, 09/29/2021 3:18 PM us Chris Lawson ASSURANCE ASSOCIATE-[facility] GENERAL IMAGING Final Resu lt documented in this encounter Visit Diagnoses Diagnosis Other closed intra-articular fracture of distal end of right radius, initial encounter documented in this encounter Care Teams Spacecraft Systems Engineer Relationship Specialty Start Date End Date Konrad Williamson DO [address] [place] [address] PCP - General FAMILY PRACTICE 08/31/21 documented as of this encounter
--- OUTSIDE RECORDS SUMMARY | 2024-10-15 03:43 | XMS_ITS | Encounter Summary ---
Author Organization [facility] Address [address] [place] [address]. [place], [place] [address] [place] [address] Care Team Providers Care Magazine Keeper Name Role Phone Konrad Williamson DO Primary Care Provider [phone] Encounter Details Date Type Department Care Team (Late st Contact Info) Description 10/24/2021 10:49 AM STOREROOM KEEPER - 10/24/2021 11:59 PM STOREROOM KEEPER Hospital Encounter [facility] Diagnostic Imaging [address] [place] [address] Chris Lawson, [facility] [address] [place] [address] Discharge Disposition: Home or Self Care (Routine Discharge) Social History Tobacco Use Types Packs/Day Years Used Date Smoking Tobacco: Never Smokeless Tobacco: Never Alcohol Use Standard Drinks/Week Comments Not Currently 0 (1 standard drink = 0.6 oz pur e alcohol) Comments Unknown Sex and Gender Information Value Date Recorded Sex Assigned at Not on file Legal Sex Female 10:59 PM STOREROOM KEEPER Gender Identity Not on file Sexual Orientation Not on file COVID-19 Exposure Response Date Recorded In the last month, have you been in contact with someone who was confirmed or suspected to have Coronavirus / COVID-19? No / Unsure 10/24/2021 10:47 AM STOREROOM KEEPER documented as of this encounter Medications at [...] Comments XR WRIST RT MIN 3V Routine 10/24/2021 12 :53 PM STOREROOM KEEPER Other closed intra-articular fracture of distal end of right radius with routine healing, subsequent encounter documented in this encounter Results * XR WRIST RT MIN 3V (10/24/2021 12:53 PM STOREROOM KEEPER) Anatomical Region Laterality Modality Wrist Radiographic Ting ging 10/24/2021 1:13 PM STOREROOM KEEPER Impressions 10/24/2021 1:16 PM STOREROOM KEEPER IMPRESSION: 1. Healing changes of a comminuted impacted distal radial fracture, in unchanged alignment. 2. DISI deformity. Ordered By: CHRIS LAWSON Interpreted By: Mckinley Briscoe MD, 10/24/2021 1:13 PM Narrative 10/24/2021 1:16 PM STOREROOM KEEPER Examination: XR WRIST RT MIN 3V Exam [...] By: Mckinley Briscoe MD, 10/24/2021 1:13 PM us Chris Lawson SALES COMMUNICATIONS MANAGER-BC GENERAL IMAGING Final Resu lt documented in this encounter Visit Diagnoses Diagnosis Other closed intra-articular fracture of distal end of right radius with routine healing, subsequent encounter documented in this encounter Care Teams Magazine Keeper Relationship Specialty Start Date End Date Konrad Williamson DO [address] [place] [address] PCP - General FAMILY PRACTICE 08/31/21 documented as of this encounter
--- OUTSIDE RECORDS SUMMARY | 2024-10-15 03:44 | XMS_ITS | Encounter Summary ---
Author Organization [facility] Address [address] [place] [address]. [place] [address] [place] [address] Care Team Providers Care Brake Repairer Hydraulic Name Role Phone Unavailable Primary Care Provider Unavailabl e Encounter Details Date Type Department Care Team (Late st Contact Info) Description 09/10/[address] [facility] [address] [place] [place] [id number] Boogie Shaffer MD [address] [place] [id number] Social History Tobacco Use Types Packs/Day Years Used Date Smoking Tobacco: Never Assessed Comments Unknown Sex and Gender Information Value Date Recorded Sex Assigned at Not on file Legal Sex Female 10:59 PM ASSISTANT PROFESSOR OF ARCHAEOLOGY Gender Identity Not on file Sexual Orientation Not on file documented as of this encounter Plan of Treatment Not on file documented as of this encounter Visit Diagnoses Not on filedocumented in this encounter
--- OUTSIDE RECORDS SUMMARY | 2024-10-15 03:44 | XMS_ITS | Encounter Summary ---
Author Organization [facility] Address [facility] [place] [address] [place] [address] Care Team Providers Care Electrical Project Manager Name Role Phone Unavailable Primary Care Provider Unavailabl e Encounter Details Date Type Department Care Team (Late st Contact Info) Description 04/09/[address] [facility] [place] [address] [place] [address] Pernell Hernandez MD [address] [place] [address] Social History Tobacco Use Types Packs/Day Years Used Date Smoking Tobacco: Never Assessed Comments Unknown Sex and Gender Information Value Date Recorded Sex Assigned at Not on file Legal Sex Female 10:59 PM STAND IN Gender Identity Not on file Sexual Orientation Not on file documented as of this encounter Plan of Treatment Not on file documented as of this encounter Visit Diagnoses Diagnosis Postmenopausal bleeding documented in this encounter
--- OUTSIDE RECORDS SUMMARY | 2024-10-15 03:44 | XMS_ITS | Encounter Summary ---
Author Organization [facility] Address [address] [place] [address]. [place] [address] [place] [address] Care Team Providers Care Warehouseman Name Role Phone Unavailable Primary Care Provider Unavailabl e Encounter Details Date Type Department Care Team (Late st Contact Info) Description 08/15/[address] [facility] [address] [place] [address] Etienne Zhao MD [address] [place] [address] Social History Tobacco Use Types Packs/Day Years Used Date Smoking Tobacco: Never Assessed Comments Unknown Sex and Gender Information Value Date Recorded Sex Assigned at Not on file Legal Sex Female 10:59 PM GEOLOGICAL AIDE Gender Identity Not on file Sexual Orientation Not on file documented as of this encounter Plan of Treatment Not on file documented as of this encounter Visit Diagnoses Diagnosis Encounter for screening mammogram for malignant neoplasm of breast Other screening mammogram documented in this encounter
--- OUTSIDE RECORDS SUMMARY | 2024-10-15 03:44 | XMS_ITS | Encounter Summary ---
Author Organization [facility] Address [address] [place] [address]. [place] [address] [place] [address] Care Team Providers Care Toe Lining Closer Name Role Phone Unavailable Primary Care Provider Unavailabl e Encounter Details Date Type Department Care Team (Late st Contact Info) Description 08/08/[address] [facility] [address] [place] [id number] Boogie Shaffer MD [address] [phone] Social History Tobacco Use Types Packs/Day Years Used Date Smoking Tobacco: Never Assessed Comments Unknown Sex and Gender Information Value Date Recorded Sex Assigned at Not on file Legal Sex Female 10:59 PM EXECUTIVE SALES MANAGER Gender Identity Not on file Sexual Orientation Not on file documented as of this encounter Plan of Treatment Not on file documented as of this encounter Visit Diagnoses Not on filedocumented in this encounter
--- OUTSIDE RECORDS SUMMARY | 2024-10-15 03:44 | XMS_ITS | Encounter Summary ---
Author Organization [facility] Address [address] [place] [address]. [place], [place] [id number] [place] [address] Care Team Providers Care Jewelry Designer Name Role Phone Unavailable Primary Care Provider Unavailabl e Encounter Details Date Type Department Care Team (Late st Contact Info) Description 02/16/2014 Abstract [facility] [address] [place] [address] [place] [address] [place] [phone] Social History Tobacco Use Types Packs/Day Years Used Date Smoking Tobacco: Never Assessed Comments Unknown Sex and Gender Information Value Date Recorded Sex Assigned at Not on file Legal Sex Female 10:59 PM WEIGHT REDUCTION SPECIALIST Gender Identity Not on file Sexual Orientation Not on file documented as of this encounter Plan of Treatment Not on file documented as of this encounter Visit Diagnoses Diagnosis Examination Unspecified examination documented in this encounter
--- OUTSIDE RECORDS SUMMARY | 2024-10-15 03:44 | XMS_ITS | Encounter Summary ---
Author Organization [facility] Address [address] [place] [address]. [place] [address] [place] [address] Care Team Providers Care Nephrology Nurse Name Role Phone Unavailable Primary Care Provider Unavailabl e Encounter Details Date Type Department Care Team (Late st Contact Info) Description 04/03/[address] [facility] [address] [place] [phone] Boogie Shaffer MD [address] [phone] Social History Tobacco Use Types Packs/Day Years Used Date Smoking Tobacco: Never Assessed Comments Unknown Sex and Gender Information Value Date Recorded Sex Assigned at Not on file Legal Sex Female 10:59 PM SEC ACCOUNTANT Gender Identity Not on file Sexual Orientation Not on file documented as of this encounter Plan of Treatment Not on file documented as of this encounter Visit Diagnoses Diagnosis Other abnormal findings on radiological examination of breast documented in this encounter
--- OUTSIDE RECORDS SUMMARY | 2024-10-15 03:44 | XMS_ITS | Encounter Summary ---
Author Organization [facility] Address [address] [place] [address]. [place] [address] [place] [address] Care Team Providers Care Char House Supervisor Name Role Phone Unavailable Primary Care Provider Unavailabl e Encounter Details Date Type Department Care Team (Late st Contact Info) Description 05/31/2018 Abstract [facility] [address] [place] [address] Etienne Zhao MD [address] [place] [phone] Boogie Shaffer MD [address] [place] [address] Social History Tobacco Use Types Packs/Day Years Used Date Smoking Tobacco: Never Assessed Comments Unknown Sex and Gender Information Value Date Recorded Sex Assigned at Not on file Legal Sex Female 10:59 PM DISTRICT MANAGER MAJOR ACCOUNTS SALES Gender Identity Not on file Sexual Orientation Not on file documented as of this encounter Plan of Treatment Not on file documented as of this encounter Procedures Procedure Name Priority Date/Time Associated Diagnosis Comments VITAMIN B-12 Routine 06/01/2018 5:32 AM CDT BASIC METABOLIC PANEL Routine 06/01/2018 5:32 AM CDT CBC W/DIFF AUTOMATED Routine 06/01/2018 5:32 AM CDT THYROID STIM HORMONE TSH Routine 06/01/2018 5:32 AM CDT URINALYSIS WI REFLEX TO CULTURE STAT 05/31/2018 5:00 PM CDT COMPREHENSIVE METABOLIC PANEL STAT 05/31/2018 4:57 PM CDT CBC W/DIFF AUTOMATED STAT 05/31/2018 4:57 PM CDT documented in this encounter Results * THYROID STIM HORMONE, TSH (06/01/2018 5:32 AM CDT) TSH 1.242 0.350 - 4.940 uIU/ML 06/01/2018 6:38 AM CDT [facility] SERUM OR PLASMA SPECIMEN / Unknown 06/01/2018 5:32 AM CDT 06/01/2018 5:49 AM CDT us Generic Conversion Md [facility] Final R esult [facility] [address] [place] [address], * (ABNORMAL) CBC W/DIFF AUTOMATED (06/01/2018 5:32 AM CDT) WBC 6.8 4.5 - 10.8 x10'3/uL 06/01/2018 7:28 AM CDT [facility] RBC 4.62 4.10 - 5.40 x10'6/uL 06/01/2018 7:28 AM CDT [facility] HGB 13.2 12.0 - 16.0 G/DL 06/01/2018 7:28 AM CDT [facility] HCT 41.5 36.0 - 47.0 % 06/01/2018 7:28 AM CDT [facility] MCV 89.8 78.0 - 100.0 FL 06/01/2018 7:28 AM CDT [facility] MCH 28.6 27.0 - 31.0 PG 06/01/2018 7:28 AM CDT [facility] MCHC 31.8(L) 33.0 - 36.0 G/DL 06/01/2018 7:28 AM CDT [facility] RDW 14.1 11.5 - 14.5 % 06/01/2018 7:28 AM CDT [facility] PLT 177 150 - 350 x10'3/uL 06/01/2018 7:28 AM CDT [facility] MPV 11.3(H) 7.4 - 10.4 FL 06/01/2018 7:28 AM CDT [facility] SEG NEUTROPHILS 59.3 % 8 7:28 AM CDT [facility] LYMPHOCYTES 24.3 % 06/01/2018 7:28 AM CDT [facility] MONOCYTES 11.4 % 06/01/2018 7:28 AM CDT [facility] EOSINOPHILS 3.4 % 06/01/2018 7:28 AM CDT [facility] BASOPHILS 1.0 % 06/01/2018 7:28 AM CDT [facility] IMMATURE GRANS % 0.6 % 06/01/20 18 7:28 AM CDT [facility] NRBC 0.0 % 06/01/2018 7:28 AM CDT [facility] ABS. NEUTROPHILS 4.04 1.60 - 8.30 x10'3/uL 06/01/2018 7:28 AM CDT [facility] ABS. LYMPHOCYTES 1.66 0.80 - 4.70 x10'3/uL 06/01/2018 7:28 AM CDT [facility] ABS. MONOCYTES 0.78 0.00 - 1.50 x10'3/uL 06/01/2018 7:28 AM CDT [facility] ABS. EOSINOPHILS 0.23 0.00 - 0.40 x10'3/uL 06/01/2018 7:28 AM CDT [facility] ABS. BASOPHILS 0.07 0.00 - 0.20 x10'3/uL 06/01/2018 7:28 AM CDT [facility] ABS. IMMATURE GRANULOCYTES 0.04(H) 0.00 - 0.03 x10'3/uL 06/01/2018 7:28 AM CDT [facility] ABS. NUCLEATED RBC'S 0.00 0.00 x10'3/uL 06/01/2018 7:28 AM CDT [facility] OTHER (type in comments) 06/01/2018 5:32 AM CDT 06/01/2018 5:49 AM CDT Comment:WHOLE BLOOD SAMPLE us Generic Conversion Md [facility] Final R esult [facility] [address] [place] [address], * (ABNORMAL) BASIC METABOLIC PANEL (06/01/2018 5:32 AM CDT) GLUCOSE 96 70 - 99 MG/DL 06/01/2018 6:13 AM CDT [facility] BUN 21(H) 10 - 20 MG/DL 06/01/2018 6:13 AM CDT [facility] CREATININE S/P/B 0.74 0.57 - 1.11 MG/DL 06/01/2018 6:13 AM CDT [facility] SODIUM S/P/B 141 136 - 145 MMOL/L 06/01/2018 6:13 AM CDT [facility] POTASSIUM S/P/B 4.0 3.5 - 5.1 MMOL/L 06/01/2018 6:13 AM CDT [facility] CHLORIDE S/P/B 108(H) 98 - 107 MMOL/L 06/01/2018 6:13 AM CDT [facility] CO2 26.0 22.0 - 29.0 MMOL/L 06/01/2018 6:13 AM CDT [facility] CALCIUM S/P/B 9.1 8.4 - 10.2 MG/DL 06/01/2018 6:13 AM CDT [facility] EGFR NON-AFR. AMER. >60 >60 ML/MIN/1.7 3 M2 06/01/2018 6:13 AM CDT [facility] EGFR AFR. AMER. >60 >60 ML/MIN/1.7 3 M2 06/01/2018 6:13 AM CDT [facility] ANION GAP 7.0 7 - 16 MMOL/L 06/01/2018 6:13 AM CDT [facility] 06/01/2018 5:32 AM CDT 06/01/2018 5:49 AM CDT us Generic Conversion Md [facility] Final R esult [facility] [address] [place] [address], [place] [phone] * VITAMIN B-12 (06/01/2018 5:32 AM CDT) VITAMIN B12 S/P/B 493 193 - 986 PG/ML 06/01/2018 10:38 PM CDT [facility] SERUM SPECIMEN / Unknown 06/01/2018 5:32 AM CDT 06/01/2018 5:49 AM CDT us Generic Conversion Md [facility] Final R esult [facility] [address] [place] [address], [place] [phone] [id number] * (ABNORMAL) URINALYSIS WI REFLEX TO CULTURE (05/31/2018 5:00 PM CDT) COLOR (U) DARK YELLOW 05/31/2018 5:21 PM CDT [facility] TRANSPARENCY CLEAR 05/31/2018 5:21 PM CDT [facility] SPECIFIC GRAVITY (U) 1.030(H) 1.000 - 1.025 05/31/2018 5:21 PM CDT [facility] Comment:EQUAL TO OR GREATER THAN U PH 5.5 5.0 - 8.0 05/31/2018 5:21 PM CDT [facility] LEUKOCYTES (U) NEGATIVE NEGATIVE 05/31/2018 5:21 PM CDT [facility] NITRITES NEGATIVE NEGATIVE 05/31/2018 5:21 PM CDT [facility] PROTEIN (U) NEGATIVE NEGATIVE 05/31/2018 5:21 PM CDT [facility] URINE GLUCOSE NEGATIVE NEGATIVE 05/31/2018 5:21 PM CDT [facility] KETONES MG/DL (U) NEGATIVE NEGATIVE 05/31/2018 5:21 PM CDT [facility] UROBILINOGEN 0.2 <1.0 EU/DL 05/31/2018 5:21 PM CDT [facility] BILIRUBIN (U) NEGATIVE NEGATIVE 05/31/2018 5:21 PM CDT [facility] BLOOD (U) TRACE(A) NEGATIVE 05/31/2018 5:21 PM CDT [facility] WBC/HPF 0-5 0 - 5 /HPF 05/31/2018 5:21 PM CDT [facility] EPI/HPF MANY /LPF 05/31/2018 5:21 PM CDT [facility] BACTERIA (U) TRACE /HPF 05/31/2018 5:21 PM CDT [facility] MUCUS PRESENT 05/31/2018 5:21 PM CDT [facility] CULTURE & SENSITIVITY INDICATED? NOT INDICATED 05/31/2018 5:21 PM CDT [facility] OTHER (type in comments) 05/31/2018 5:00 PM CDT 05/31/2018 5:13 PM CDT Comment:URINE SPECIMEN~URINE SPECIMEN us Generic Conversion Md [facility] URINE ORDERABLES Final Result [facility] [address] [place] [address], * (ABNORMAL) COMPREHENSIVE METABOLIC PANEL (05/31/2018 4:57 PM CDT) GLUCOSE 91 70 - 99 MG/DL 05/31/2018 5:58 PM CDT [facility] BUN 22(H) 10 - 20 MG/DL 05/31/2018 5:58 PM CDT [facility] CREATININE S/P/B 0.90 0.57 - 1.11 MG/DL 05/31/2018 5:58 PM CDT [facility] SODIUM S/P/B 140 136 - 145 MMOL/L 05/31/2018 5:58 PM CDT [facility] POTASSIUM S/P/B 4.1 3.5 - 5.1 MMOL/L 05/31/2018 5:58 PM CDT [facility] CHLORIDE S/P/B 105 98 - 107 MMOL/L 05/31/2018 5:58 PM CDT [facility] CO2 25.0 22.0 - 29.0 MMOL/L 05/31/2018 5:58 PM CDT [facility] CALCIUM S/P/B 9.8 8.4 - 10.2 MG/DL 05/31/2018 5:58 PM CDT [facility] BILIRUBIN TOTAL S/P/B 0.6 0.2 - 1.2 MG/DL 05/31/2018 5:58 PM CDT [facility] TOTAL PROTEIN S/P/B 6.7 6.0 - 8.3 G/DL 05/31/2018 5:58 PM T [facility] ALBUMIN S/P/B 3.9 3.2 - 4.6 G/DL 05/31/2018 5:58 PM CDT [facility] AST 40(H) 5 - 34 U/L 05/31/2018 5:58 PM T [facility] ALT 28 0 - 55 U/L 05/31/2018 5:58 PM T [facility] ALKALINE PHOSPHATASE S/P/B 93 50 - 136 U/L 05/31/2018 5:58 PM T [facility] OSMOLALITY (CALC) 282 275 - 300 MOSM/KG 05/31/2018 5:58 PM T [facility] A/G RATIO 1.4 1.0 - 1.6 RATIO 05/31/2018 5:58 PM T [facility] BUN CREATININE RATIO 24.4(H) 12 - 20 05/31/2018 5:58 PM T [facility] ANION GAP 10.0 7 - 16 MMOL/L 05/31/2018 5:58 PM T [facility] EGFR NON-AFR. AMER. >60 >60 ML/MIN/1.7 3 M2 05/31/2018 5:58 PM CDT [facility] EGFR AFR. AMER. >60 >60 ML/MIN/1.7 3 M2 05/31/2018 5:58 PM CDT [facility] 05/31/2018 4:57 PM CDT 05/31/2018 5:03 PM CDT us Generic Conversion Md [facility] Final R esult [facility] [address] [place] [address], * (ABNORMAL) CBC W/DIFF AUTOMATED (05/31/2018 4:57 PM CDT) WBC 9.1 4.5 - 10.8 x10'3/uL 05/31/2018 5:07 PM CDT [facility] RBC 5.58(H) 4.10 - 5.40 x10'6/uL 05/31/2018 5:07 PM CDT [facility] HGB 16.1(H) 12.0 - 16.0 G/DL 05/31/2018 5:07 PM CDT [facility] HCT 49.0(H) 36.0 - 47.0 % 05/31/2018 5:07 PM CDT [facility] MCV 87.8 78.0 - 100.0 FL 05/31/2018 5:07 PM CDT [facility] MCH 28.9 27.0 - 31.0 PG 05/31/2018 5:07 PM CDT [facility] MCHC 32.9(L) 33.0 - 36.0 G/DL 05/31/2018 5:07 PM CDT [facility] RDW 14.5 11.5 - 14.5 % 05/31/2018 5:07 PM CDT [facility] PLT 207 150 - 350 x10'3/uL 05/31/2018 5:07 PM CDT [facility] MPV 12.5(H) 7.4 - 10.4 FL 05/31/2018 5:07 PM CDT [facility] SEG NEUTROPHILS 64.6 % 8 5:07 PM CDT [facility] LYMPHOCYTES 21.7 % 05/31/2018 5:07 PM CDT [facility] MONOCYTES 10.0 % 05/31/2018 5:07 PM CDT [facility] EOSINOPHILS 2.3 % 05/31/2018 5:07 PM CDT [facility] BASOPHILS 0.9 % 05/31/2018 5:07 PM CDT [facility] IMMATURE GRANS % 0.5 % 05/31/20 18 5:07 PM CDT [facility] NRBC 0.0 % 05/31/2018 5:07 PM CDT [facility] ABS. NEUTROPHILS 5.88 1.60 - 8.30 x10'3/uL 05/31/2018 5:07 PM CDT [facility] ABS. LYMPHOCYTES 1.98 0.80 - 4.70 x10'3/uL 05/31/2018 5:07 PM CDT [facility] ABS. MONOCYTES 0.91 0.00 - 1.50 x10'3/uL 05/31/2018 5:07 PM CDT [facility] ABS. EOSINOPHILS 0.21 0.00 - 0.40 x10'3/uL 05/31/2018 5:07 PM CDT [facility] ABS. BASOPHILS 0.08 0.00 - 0.20 x10'3/uL 05/31/2018 5:07 PM CDT [facility] ABS. IMMATURE GRANULOCYTES 0.05(H) 0.00 - 0.03 x10'3/uL 05/31/2018 5:07 PM CDT [facility] ABS. NUCLEATED RBC'S 0.00 0.00 x10'3/uL 05/31/2018 5:07 PM CDT [facility] OTHER (type in comments) 05/31/2018 4:57 PM CDT 05/31/2018 5:03 PM CDT Comment:WHOLE BLOOD SAMPLE us Generic Conversion Md [facility] Final R esult [facility] [address] [place] [id number], documented in this encounter Visit Diagnoses Diagnosis Major depressive disorder, recurrent severe without psychotic features ([facility]) Major depressive disorder, recurrent episode, severe, without mention of psychotic behavior documented in this encounter
--- OUTSIDE RECORDS SUMMARY | 2024-10-15 03:44 | XMS_ITS | Encounter Summary ---
Author Organization [facility] Address [address] [place] [address]. [place] [address] [place] [address] Care Team Providers Care Filling Machine Set Up Mechanic Name Role Phone Unavailable Primary Care Provider Unavailabl e Encounter Details Date Type Department Care Team (Late st Contact Info) Description 12/31/[address] [facility] [address] [facility] [place] [address] Dayton Muller MD [address] [facility] [place] [address] Social History Tobacco Use Types Packs/Day Years Used Date Smoking Tobacco: Never Assessed Comments Unknown Sex and Gender Information Value Date Recorded Sex Assigned at Not on file Legal Sex Female 10:59 PM HR COORDINATOR Gender Identity Not on file Sexual Orientation Not on file documented as of this encounter Plan of Treatment Not on file documented as of this encounter Visit Diagnoses Not on filedocumented in this encounter
--- OUTSIDE RECORDS SUMMARY | 2024-10-15 03:44 | XMS_ITS | Encounter Summary ---
Author Organization [facility] Address [address] [place] [address]. [place], [place] [id number] [place] [address] Care Team Providers Care Flight Operations Engineer Name Role Phone Unavailable Primary Care Provider Unavailabl e Encounter Details Date Type Department Care Team (Late st Contact Info) Description 06/09/2001 Abstract [facility] [address] [place] [address] , Generic Conversion, Social History Tobacco Use Types Packs/Day Years Used Date Smoking Tobacco: Never Assessed Comments Unknown Sex and Gender Information Value Date Recorded Sex Assigned at Not on file Legal Sex Female 10:59 PM FREEZER UNLOADER Gender Identity Not on file Sexual Orientation Not on file documented as of this encounter Plan of Treatment Not on file documented as of this encounter Visit Diagnoses Not on filedocumented in this encounter
--- OUTSIDE RECORDS SUMMARY | 2024-10-15 03:44 | XMS_ITS | Encounter Summary ---
Author Organization [facility] Address [address] [place] [address]. [place] [address] [place] [address] Care Team Providers Care Refinery Technician Name Role Phone Unavailable Primary Care Provider Unavailabl e Encounter Details Date Type Department Care Team (Late st Contact Info) Description 01/25/[address] [place] [address] [id number] Boogie Shaffer MD [address] [id number] Social History Tobacco Use Types Packs/Day Years Used Date Smoking Tobacco: Never Assessed Comments Unknown Sex and Gender Information Value Date Recorded Sex Assigned at Not on file Legal Sex Female 10:59 PM RHIC SYSTEMS SAFETY ENGINEER Gender Identity Not on file Sexual Orientation Not on file documented as of this encounter Plan of Treatment Not on file documented as of this encounter Visit Diagnoses Diagnosis Hematuria Hematuria, unspecified documented in this encounter
--- OUTSIDE RECORDS SUMMARY | 2024-10-15 03:44 | XMS_ITS | Encounter Summary ---
Author Organization [facility] Address [address] [place] [address]. [place] [address] [place] [address] Care Team Providers Care Grizzly Worker Name Role Phone Unavailable Primary Care Provider Unavailabl e Encounter Details Date Type Department Care Team (Late st Contact Info) Description 01/04/[address] [facility] [address] [place] [phone] Boogie Shaffer MD [address] [place] [phone] Social History Tobacco Use Types Packs/Day Years Used Date Smoking Tobacco: Never Assessed Comments Unknown Sex and Gender Information Value Date Recorded Sex Assigned at Not on file Legal Sex Female 10:59 PM REGISTERED SALES ASSISTANT Gender Identity Not on file Sexual Orientation Not on file documented as of this encounter Plan of Treatment Not on file documented as of this encounter Visit Diagnoses Diagnosis Other screening mammogram documented in this encounter
--- OUTSIDE RECORDS SUMMARY | 2024-10-15 03:44 | XMS_ITS | Encounter Summary ---
Author Organization [facility] Address [address] [place] [address]. 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
--- OUTSIDE RECORDS SUMMARY | 2024-10-15 03:44 | XMS_ITS | Encounter Summary ---
Author Organization [facility] Address [address] [place] [address]. [place] [address] [place] [address] Care Team Providers Care Tower Cleaner Name Role Phone Unavailable Primary Care Provider Unavailabl e Encounter Details Date Type Department Care Team (Late st Contact Info) Description 12/08/[address] 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
--- OUTSIDE RECORDS SUMMARY | 2024-10-15 03:44 | XMS_ITS | Encounter Summary ---
Author Organization [facility] Address [facility] [place] [address] [place] [address] Care Team Providers Care Cooling Room Attendant Name Role Phone Unavailable Primary Care Provider Unavailabl e Encounter Details Date Type Department Care Team (Late st Contact Info) Description 02/28/2014 Abstract [facility] [address] [place] [address] Inocencio Solares MD [address] [place], [place] [phone] Social History Tobacco Use Types Packs/Day Years Used Date Smoking Tobacco: Never Assessed Comments Unknown Sex and Gender Information Value Date Recorded Sex Assigned at Not on file Legal Sex Female 10:59 PM SPECIALTY SALES REPRESENTATIVE Gender Identity Not on file Sexual Orientation Not on file documented as of this encounter Plan of Treatment Not on file documented as of this encounter Visit Diagnoses Diagnosis Low back pain Lumbago documented in this encounter
--- OUTSIDE RECORDS SUMMARY | 2024-10-15 03:44 | XMS_ITS | Encounter Summary ---
Author Organization [facility] Address [address] [place] [address]. [place] [address] [place] [address] Care Team Providers Care Field Artillery Crewmember Name Role Phone Unavailable Primary Care Provider Unavailabl e Encounter Details Date Type Department Care Team (Late st Contact Info) Description 08/19/[address] [facility] [address] [place] [address] Etienne Zhao MD [address] [place] [address] Social History Tobacco Use Types Packs/Day Years Used Date Smoking Tobacco: Never Assessed Comments Unknown Sex and Gender Information Value Date Recorded Sex Assigned at Not on file Legal Sex Female 10:59 PM GYN PHYSICIAN Gender Identity Not on file Sexual Orientation Not on file documented as of this encounter Plan of Treatment Not on file documented as of this encounter Visit Diagnoses Diagnosis Other abnormal and inconclusive findings on diagnostic imaging of breast documented in this encounter
--- OUTSIDE RECORDS SUMMARY | 2024-10-15 03:44 | XMS_ITS | Encounter Summary ---
Author Organization [facility] Address [address] [place] [address]. [place] [address] [place] [address] Care Team Providers Care Operator Engineer Name Role Phone Unavailable Primary Care Provider Unavailabl e Encounter Details Date Type Department Care Team (Late st Contact Info) Description 01/08/[address] 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
--- OUTSIDE RECORDS SUMMARY | 2024-10-15 03:44 | XMS_ITS | Encounter Summary ---
Author Organization [facility] Address [address] [place] [address]. 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
--- OUTSIDE RECORDS SUMMARY | 2024-10-15 03:44 | XMS_ITS | Encounter Summary ---
Author Organization [facility] Address [address] [place] [address]. [place] [address] [place] [address] Care Team Providers Care Urban Redevelopment Specialist Name Role Phone Unavailable Primary Care Provider Unavailabl e Encounter Details Date Type Department Care Team (Late st Contact Info) Description 02/16/[address] [facility] [place] [address] [place] [address] [place] [phone] Social History Tobacco Use Types Packs/Day Years Used Date Smoking Tobacco: Never Assessed Comments Unknown Sex and Gender Information Value Date Recorded Sex Assigned at Not on file Legal Sex Female 10:59 PM QUALITY ASSURANCE CLERK Gender Identity Not on file Sexual Orientation Not on file documented as of this encounter Plan of Treatment Not on file documented as of this encounter Visit Diagnoses Diagnosis Microscopic hematuria documented in this encounter
--- OUTSIDE RECORDS SUMMARY | 2024-10-15 03:44 | XMS_ITS | Encounter Summary ---
Author Organization [facility] Address [address] [place] [address]. [place] [address] [place] [address] Care Team Providers Care Bushel Girl Name Role Phone Unavailable Primary Care Provider Unavailabl e Encounter Details Date Type Department Care Team (Late st Contact Info) Description 03/31/[address] [facility] [address] [place] [phone] Boogie Shaffer MD [address] [place] [phone] Social History Tobacco Use Types Packs/Day Years Used Date Smoking Tobacco: Never Assessed Comments Unknown Sex and Gender Information Value Date Recorded Sex Assigned at Not on file Legal Sex Female 10:59 PM CATALYST MANUFACTURING OPERATOR Gender Identity Not on file Sexual Orientation Not on file documented as of this encounter Plan of Treatment Not on file documented as of this encounter Visit Diagnoses Diagnosis Other screening mammogram documented in this encounter
--- OUTSIDE RECORDS SUMMARY | 2024-10-15 03:44 | XMS_ITS | Encounter Summary ---
Author Organization [facility] Address [address] [place] [address]. [place] [address] [place] [address] Care Team Providers Care Consulting It Architect Name Role Phone Unavailable Primary Care Provider Unavailabl e Encounter Details Date Type Department Care Team (Late st Contact Info) Description 08/14/[address] [facility] [address] [place] [address] Etienne Zhao MD [address] [place] [address] Social History Tobacco Use Types Packs/Day Years Used Date Smoking Tobacco: Never Assessed Comments Unknown Sex and Gender Information Value Date Recorded Sex Assigned at Not on file Legal Sex Female 10:59 PM INDUSTRIAL ENGINEERING ANALYST Gender Identity Not on file Sexual Orientation Not on file documented as of this encounter Plan of Treatment Not on file documented as of this encounter Visit Diagnoses Diagnosis Encounter for screening mammogram for malignant neoplasm of breast Other screening mammogram documented in this encounter
--- OUTSIDE RECORDS SUMMARY | 2024-10-15 03:44 | XMS_ITS | Encounter Summary ---
Author Organization [facility] Address [address] [place] [address]. [place] [address] [place] [address] Care Team Providers Care Glove Turner And Former Name Role Phone Unavailable Primary Care Provider Unavailabl e Encounter Details Date Type Department Care Team (Late st Contact Info) Description 02/15/2014 Abstract [facility] [address] [place] [address] [place] [address] [address] [phone] Social History Tobacco Use Types Packs/Day Years Used Date Smoking Tobacco: Never Assessed Comments Unknown Sex and Gender Information Value Date Recorded Sex Assigned at Not on file Legal Sex Female 10:59 PM TOXICOLOGIST Gender Identity Not on file Sexual Orientation Not on file documented as of this encounter Plan of Treatment Not on file documented as of this encounter Visit Diagnoses Diagnosis Microscopic hematuria documented in this encounter
--- OUTSIDE RECORDS SUMMARY | 2024-10-15 03:44 | XMS_ITS | Encounter Summary ---
Author Organization [facility] Address [address] [place] [address]. [place] [address] [place] [address] Care Team Providers Care Data Analytics Specialist Name Role Phone Unavailable Primary Care Provider Unavailabl e Encounter Details Date Type Department Care Team (Late st Contact Info) Description 09/10/[address] [facility] [address] [place] [id number] Boogie Shaffer MD [address] [place] [id number] Social History Tobacco Use Types Packs/Day Years Used Date Smoking Tobacco: Never Assessed Comments Unknown Sex and Gender Information Value Date Recorded Sex Assigned at Not on file Legal Sex Female 10:59 PM BANKING REPRESENTATIVE Gender Identity Not on file Sexual Orientation Not on file documented as of this encounter Plan of Treatment Not on file documented as of this encounter Visit Diagnoses Not on filedocumented in this encounter
--- OUTSIDE RECORDS SUMMARY | 2024-10-15 03:44 | XMS_ITS | Encounter Summary ---
Author Organization [facility] Address [address] [place] [address]. [place] [address] [place] [address] Care Team Providers Care Computer Discovery Teacher Name Role Phone Unavailable Primary Care Provider Unavailabl e Encounter Details Date Type Department Care Team (Late st Contact Info) Description 08/22/[address] [facility] [address] [place] [phone] Boogie Shaffer MD [address] [place] [phone] Social History Tobacco Use Types Packs/Day Years Used Date Smoking Tobacco: Never Assessed Comments Unknown Sex and Gender Information Value Date Recorded Sex Assigned at Not on file Legal Sex Female 10:59 PM RACE BOARD ATTENDANT Gender Identity Not on file Sexual Orientation Not on file documented as of this encounter Plan of Treatment Not on file documented as of this encounter Visit Diagnoses Not on filedocumented in this encounter
--- OUTSIDE RECORDS SUMMARY | 2024-10-15 03:44 | XMS_ITS | Encounter Summary ---
Author Organization [facility] Address [facility] [place] [address] [place] [address] Care Team Providers Care Oral And Maxillofacial Pathologist Name Role Phone Unavailable Primary Care Provider Unavailabl e Encounter Details Date Type Department Care Team (Late st Contact Info) Description 02/09/2014 Abstract [facility] [address] [place] [address] [place] [address] [phone] Social History Tobacco Use Types Packs/Day Years Used Date Smoking Tobacco: Never Assessed Comments Unknown Sex and Gender Information Value Date Recorded Sex Assigned at Not on file Legal Sex Female 10:59 PM BIOFUELS TECHNOLOGY MANAGER Gender Identity Not on file Sexual Orientation Not on file documented as of this encounter Plan of Treatment Not on file documented as of this encounter Visit Diagnoses Diagnosis Hematuria Hematuria, unspecified documented in this encounter
--- OUTSIDE RECORDS SUMMARY | 2024-10-15 03:44 | XMS_ITS | Encounter Summary ---
Author Organization [facility] Address [address] [place] [address]. [place], [place] [address] [place] [address] Care Team Providers Care Public Speaking Professor Name Role Phone Konrad Williamson DO Primary Care Provider [phone] Encounter Details Date Type Department Care Team (Latest Contact Info) Description 08/31/2021 Travel Social History Tobacco Use Types Packs/Day Years Used Date Smoking Tobacco: Never Smokeless Tobacco: Never Comments Unknown Sex and Gender Information Value Date Recorded Sex Assigned at Not on file Legal Sex Female 10:59 PM RENAL DIALYSIS RN Gender Identity Not on file Sexual Orientation Not on file COVID-19 Exposure Response Date Recorded In the last month, have you been in contact with someone who was confirmed or suspected to have Coronavirus / COVID-19? No / Unsure 08/31/2021 9:08 AM CDT documented as of this encounter Plan of Treatment Not on file documented as of this encounter Visit Diagnoses Not on filedocumented in this encounter Care Teams Public Speaking Professor Relationship Specialty Start Date End Date Konrad Williamson DO [address] [place] [address] PCP - General FAMILY PRACTICE 08/31/21 documented as of this encounter
--- OUTSIDE RECORDS SUMMARY | 2024-10-15 03:44 | XMS_ITS | Encounter Summary ---
Author Organization [facility] Address [address] [place] [address]. [place] [address] [place] [address] Care Team Providers Care Checkroom Chief Name Role Phone Unavailable Primary Care Provider Unavailabl e Encounter Details Date Type Department Care Team (Late st Contact Info) Description 04/09/2014 Abstract [facility] [address] [place] [address] Pernell Hernandez MD [address] [place] [address] Social History Tobacco Use Types Packs/Day Years Used Date Smoking Tobacco: Never Assessed Comments Unknown Sex and Gender Information Value Date Recorded Sex Assigned at Not on file Legal Sex Female 10:59 PM SUPERVISOR STITCHING DEPARTMENT Gender Identity Not on file Sexual Orientation Not on file documented as of this encounter Plan of Treatment Not on file documented as of this encounter Visit Diagnoses Diagnosis Examination Unspecified examination documented in this encounter
--- OUTSIDE RECORDS SUMMARY | 2024-10-15 03:44 | XMS_ITS | Encounter Summary ---
Author Organization [facility] Address [address] [place] [address]. 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
--- OUTSIDE RECORDS SUMMARY | 2024-10-15 03:44 | XMS_ITS | Encounter Summary ---
Author Organization [facility] Address [address] [place] [address]. [place] [address] [place] [address] Care Team Providers Care Learning And Development Specialist Name Role Phone JudithKonrad vargas DO Primary Care Provider [phone] Reason for Visit * Reason Comments Wrist Pain RIGHT Encounter Details Date Type Department Care Team (Late st Contact Info) Description 08/31/2021 9:45 AM CDT Office Visit [facility] [address] [address] Trisha Lawson, [facility] [address] [facility] [place] [address] Wrist Pain (RIGHT) Social History Tobacco Use Types Packs/Day Years Used Date Smoking Tobacco: Never Smokeless Tobacco: Never Comments Unknown Sex and Gender Information Value Date Recorded Sex Assigned at Not on file Legal Sex Female 10:59 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 No / Unsure 08/31/2021 9:08 AM CDT documented as of this encounter Last Filed Vital Signs Vital Sign Reading Time Taken Comments Blood Pressure - - Pulse - - Temperature - - Respiratory Rate - - Oxygen Saturation - - Inhaled Oxygen Concentration - - Weight 77.1 kg (170 lb) 08/31/2021 9:29 AM CDT Height 154.9 cm (5' 1 ) 08/31/2021 9:29 AM CDT Body Mass Index 32.12 08/31/2021 9:29 AM CDT documented in this encounter Progress Notes * Trisha Lawson, IT BUSINESS SYSTEMS ANALYST-BC - 08/31/2021 9:45 AM CDT Chief Complaint: Wrist Pain (RIGHT) History of Present Illness: Eva Alatorre is a 80-year-old female who presents to the office for Wrist Pain (RIGHT) DOI: 08/15/21 Patient states she had a fall in her bathroom at the [place]. She notes she attempted to catch herself injuring RIGHT arm. She then followed up at [facility] and was placed in a splint. Patient does not remember prior xray and is poor historian in office today. She locates pain to ulnar aspect ofRIGHT wrist. Pain increases with rotation.She is taking Tylenol PRN for pain with good relief. She is using sling daily. Assisted living states patient had another fall after original injury. She is RIGHT hand dominant. ROS: See HPI for pertinent positives Problem List: Patient Active Problem List Diagnosis ??? Other closed intra-articular fracture of distal end of right radius, initial encounter History: Past Medical History: Diagnosis Date [...] and Sexual Activity ??? Alcohol use: Not on file ??? Drug use: Not on file ??? Sexual activity: Not on file Other [...] needed for Pain., Disp: , Rfl: ??? buPROPion 75 MG [...] mouth nightly at bedtime., Disp: , Rfl: Allergies Allergen Reactions ??? Clonazepam Other (see comment) confussion Objective: Body mass index is 32.12 kg/m??. Last Recorded Weight 08/31/21 0929 Weight: 77.1 kg (170 lb) Physical exam: Constitutional: Alert and in no acute distress. Neurological: The patient was oriented to person, place, and time. Eyes: The sclera and conjunctiva were normal ENT: Hearing was normal. Neck: The appearance of the neck was normal. Cardiovascular: Normal pulses. Pulmonary: No respiratory distress. Skin: No injuries or skin lesion. Musculoskeletal: Exam of right wrist today demonstrates tenderness over distal radius with palpation, mild swelling and ecchymosis, motor intact, good capillary refill, neurovascularly intact. 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 Procedure: Procedure: Cast application of the Right Wrist Material: 3 inch Fiberglass (2 rolls), Webril and Polyester Stockinette Type: Short arm cast with the joint slight flexion. Patient Status: neurovascular exam after splint/cast application was unchanged. Activity Restrictions: The patient is advised not bear weight and avoid getting the splint/cast wet. Follow up: Eva Alatorre was instructed to follow up in 4 weeks. Assessment: Encounter Diagnose(s) ICD-10-CM ICD-9-CM SNOMED CT(R) 1. Other closed intra-articular fracture of distal end of right radius, initial encounter S52.571A 813.42 CLOSED FRACTURE OF DISTAL END OF RADIUS Plan: Patient is a poor historian and had no family or caregivers with her at the visit. I did review imaging with patient in the office today. Patient was placed in a short arm cast in the office today and tolerated well. I did review cast precautions with patient and also provided orders to take back to the assisted living that include cast precautions as well. She will follow-up in 4 weeks for reevaluation. Follow up: Return in about 4 weeks (around 09/28/2021) for Visit with imaging after cast removal (RIGHT wrist). TAZ DONOVAN SERVICE TECHNICIAN documented in this encounter Plan of Treatment Not on file documented as of this encounter Visit Diagnoses Diagnosis Other closed intra-articular fracture of distal end of right radius, initial encounter- Primary documented in this encounter Care Teams Learning And Development Specialist Relationship Specialty Start Date End Date Konrad Williamson DO [address] [place] [address] PCP - General FAMILY PRACTICE 08/31/21 documented as of this encounter
--- OUTSIDE RECORDS SUMMARY | 2024-10-15 03:44 | XMS_ITS | Encounter Summary ---
Author Organization [facility] Address [address] [place] [address]. [place] [address] [place] [address] Care Team Providers Care Internal Audit Manager Name Role Phone Unavailable Primary Care Provider Unavailabl e Encounter Details Date Type Department Care Team (Late st Contact Info) Description 12/01/[address] 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
--- OUTSIDE RECORDS SUMMARY | 2024-10-15 03:44 | XMS_ITS | Encounter Summary ---
Author Organization [facility] Address [address] [place] [address]. [address] Care Team Providers Care Documentation Specialist Name Role Phone Unavailable Primary Care Provider Unavailabl e Encounter Details Date Type Department Care Team (Late st Contact Info) Description 02/01/[address] 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
--- OUTSIDE RECORDS SUMMARY | 2024-10-15 03:44 | XMS_ITS | Encounter Summary ---
Author Organization [facility] Address [facility] 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 Gender Identity Not on file Sexual Orientation Not on file documented as of this encounter Plan of Treatment Not on file documented as of this encounter Procedures Procedure Name Priority Date/Time Associated Diagnosis Comments URINALYSIS Routine 07/30/2017 1:43 PM CDT URINE BACTERIA CULTURE Routine 07/30/2017 1:43 PM CDT documented in this encounter Results * CULTURE URINE (07/30/2017 1:43 PM CDT) SPEC DESCRIPTION URINE CLEAN CATCH 07/30/2017 1:53 PM CDT [facility] SPECIAL REQUESTS NO SPECIAL REQUEST 07/30/2017 1:53 PM CDT [facility] CULTURE RESULT FEW CONTAMINANTS 01/2017 9:24 PM CDT [facility] URINE SPECIMEN OBTAINED BY CLEAN CATCH PROCEDURE / Unknown 07/30/2017 1:43 PM CDT 07/30/2017 2:00 PM CDT us Generic Conversion Md [facility] MICROBIOLOGY - GENERAL ORDERABLES Final Result [facility] [address] [place] [address], [place] [phone] [id number] [facility] [address] [place] [address], [place] [phone] * (ABNORMAL) URINALYSIS (07/30/2017 1:43 PM CDT) COLOR (U) YELLOW 07/30/2017 2:23 PM CDT [facility] TRANSPARENCY CLEAR 07/30/2017 2:23 PM CDT [facility] SPECIFIC GRAVITY (U) 1.015 1.000 - 1.025 07/30/2017 2:23 PM CDT [facility] U PH 6.0 5.0 - 8.0 07/30/2017 2:23 PM CDT [facility] LEUKOCYTES (U) NEGATIVE NEGATIVE 07/30/2017 2:23 PM CDT [facility] NITRITES NEGATIVE NEGATIVE 07/30/2017 2:23 PM CDT [facility] PROTEIN (U) NEGATIVE NEGATIVE 07/30/2017 2:23 PM CDT [facility] URINE GLUCOSE NEGATIVE NEGATIVE 07/30/2017 2:23 PM CDT [facility] KETONES MG/DL (U) NEGATIVE NEGATIVE 07/30/2017 2:23 PM CDT [facility] UROBILINOGEN 0.2 <1.0 EU/DL 07/30/2017 2:23 PM CDT [facility] BILIRUBIN (U) NEGATIVE NEGATIVE 07/30/2017 2:23 PM CDT [facility] BLOOD (U) TRACE(A) NEGATIVE 07/30/2017 2:23 PM CDT [facility] WBC/HPF 0-5 0 - 5 /HPF 07/30/2017 2:23 PM CDT [facility] RBC/HPF 0-5 0 - 5 /HPF 07/30/2017 2:23 PM CDT [facility] EPI/HPF MANY /LPF 07/30/2017 2:23 PM CDT [facility] 07/30/2017 1:43 PM CDT 07/30/2017 1:59 PM CDT us Generic Conversion Md WEBB URINE ORDERABLES Final Result [facility] [address] [place] [address], [place] [phone] documented in this encounter Visit Diagnoses Diagnosis Calculus of kidney documented in this encounter
--- OUTSIDE RECORDS SUMMARY | 2024-10-15 03:44 | XMS_ITS | Encounter Summary ---
Author Organization [facility] Address [address] [place] [address]. [place] [address] [place] [address] Care Team Providers Care Resaw Feeder Name Role Phone Unavailable Primary Care Provider Unavailabl e Encounter Details Date Type Department Care Team (Late st Contact Info) Description 10/31/[address] 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
--- OUTSIDE RECORDS SUMMARY | 2024-10-15 03:44 | XMS_ITS | Encounter Summary ---
Author Organization [facility] Address [address] [place] [address]. 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
--- OUTSIDE RECORDS SUMMARY | 2024-10-15 03:44 | XMS_ITS | Encounter Summary ---
Author Organization [facility] Address [address] [place] [address]. [place], [place] [address] [place] [address] Care Team Providers Care Lubrication Technician Name Role Phone JudithKonrad vargas Primary Care Provider [phone] Encounter Details Date Type Department Care Team (Late st Contact Info) Description 08/31/2021 9:13 AM CDT - 08/31/2021 11:59 PM CDT Hospital Encounter [facility] Diagnostic Imaging [address] [place] [address] Chris Lawson, [facility]- [address] [facility] [place] [address] Discharge Disposition: Home or Self Care (Routine Discharge) Social History Tobacco Use Types Packs/Day Years Used Date Smoking Tobacco: Never Smokeless Tobacco: Never Comments Unknown Sex and Gender Information Value Date Recorded Sex Assigned at Not on file 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 No / Unsure 08/31/2021 9:08 AM CDT documented as of this encounter Medications at Time of Discharge acetaminophen 500 MG tablet Take 500 mg by mouth every 6 (six) hours as needed for Pain. buPROPion 75 MG tablet Take 75 mg [...] Comments XR WRIST RT MIN 3V Routine 08/31/2021 9: 36 AM CDT Right wrist pain documented in this encounter Results * XR WRIST RT MIN 3V (08/31/2021 9:36 AM CDT) Anatomical Region Laterality Modality Wrist Radiographic Ting ging 08/31/2021 11:2 1 AM CDT Impressions 08/31/2021 11:25 AM CDT IMPRESSION: Stable exam. Referred By: CHRIS LAWSON Interpreted By: Azra Lomeli MD, 08/31/2021 11:21 AM Narrative 08/31/2021 11:25 AM CDT Examination: Right wrist. Exam time: 0857 hours. Clinical history: Fracture follow-up. Comparison: 08/15/2021 ([facility]). Technique: Three views. Findings: Mildly displaced and impacted comminuted intra-articular fracture of the distal radius is again evident with overall stable alignment allowing for minor differences in projection. The overall appearance of the fracture is not appreciably changed. There are no definite signs of healing. No new fracture is identified. Degenerative changes in the wrist with DISI again evident. 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 No other significant bone or joint abnormality is noted. Procedure Note Azar Lomeli MD - 08/31/2021 Examination: Right wrist. Exam time: 0857 hours. Clinical history: Fracture follow[facility]up. [facility] Technique: Three views. Findings: Mildly displaced and impacted comminuted intra-articularfracture of the distal radius is again evident with overall stablealignment allowing for minor differences in projection. The overallappearance of the fracture is not appreciably changed. There are nodefinite signs of healing. No new fracture is identified. Degenerativechanges in the wrist with DISI again evident. 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 No other significant bone or jointabnormality is noted. IMPRESSION: Stable exam. Referred By: CHRIS LAWSON Interpreted By: Azar Lomeli MD, 08/31/2021 11:21 AM us Chris Lawson SUPERVISOR SMOKE CONTROL-BC GENERAL IMAGING Final Resu lt documented in this encounter Visit Diagnoses Diagnosis Right wrist pain Pain in joint, forearm documented in this encounter Care Teams Lubrication Technician Relationship Specialty Start Date End Date Konrad Williamson DO [address] [place] [address] PCP - General FAMILY PRACTICE 08/31/21 documented as of this encounter
--- OUTSIDE RECORDS SUMMARY | 2024-10-15 03:44 | XMS_ITS | Encounter Summary ---
Author Organization [facility] Address [address] [place] [address]. [place], [place] [address] [place] [address] Care Team Providers Care Environmental Technical Officer Name Role Phone Konrad Williamson DO Primary Care Provider [phone] Encounter Details Date Type Department Care Team (Late st Contact Info) Description 09/27/[address] [place] [address] Chris Lawson, [facility] [address] [place] [address] [place] [id number] Social History Tobacco Use Types Packs/Day Years Used Date Smoking Tobacco: Never Smokeless Tobacco: Never Comments Unknown Sex and Gender Information Value Date Recorded Sex Assigned at Not on file 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 Otherwise stable exam. Ordered By: CHRIS LAWSON Interpreted By: Azar Lomeli MD, 09/29/2021 3:18 PM Narrative 09/29/2021 3:20 PM PLANT ATTENDANT OR ASSISTANT OPERATOR Examination: Right wrist. Exam time: 0900 hours. [...] By: Azar Lomeli MD, 09/29/2021 3:18 PM Chris Lawson COW RIDER-BC GENERAL IMAGING Final Resu lt documented in this encounter Visit Diagnoses Diagnosis Other closed intra-articular fracture of distal end of right radius, initial encounter- Primary Other closed intra-articular fracture of distal end of right radius, initial encounter documented in this encounter Care Teams Environmental Technical Officer Relationship Specialty Start Date End Date Konrad Williamson DO [address] [place] [address] PCP - General FAMILY PRACTICE 08/31/21 documented as of this encounter
--- OUTSIDE RECORDS SUMMARY | 2024-10-15 03:44 | XMS_ITS | Encounter Summary ---
Author Organization [facility] Address [address] [place] [address]. [place] [address] [place] [address] Care Team Providers Care Olive Pitter Name Role Phone Unavailable Primary Care Provider Unavailabl e Encounter Details Date Type Department Care Team (Late st Contact Info) Description 07/08/[address] 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
--- OUTSIDE RECORDS SUMMARY | 2024-10-15 03:44 | XMS_ITS | Encounter Summary ---
Author Organization [facility] Address [address] [place] [address]. [place] [address] [place] [address] Care Team Providers Care Filtration Operator Name Role Phone Unavailable Primary Care Provider Unavailabl e Encounter Details Date Type Department Care Team (Late st Contact Info) Description 10/28/[address] 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
--- OUTSIDE RECORDS SUMMARY | 2024-10-15 03:44 | XMS_ITS | Encounter Summary ---
Author Organization [facility] Address [address] [place] [address]. [place] [address] [place] [address] Care Team Providers Care Railway Track Plant Operator Name Role Phone Konrad Williamson DO Primary Care Provider [phone] Reason for Visit * Reason Comments Image (SCAN) Encounter Details Date Type Department Care Team ([facility] Contact Info) Description 08/15/[address] [place] [address] Scanned, Documents Image (SCAN) Social History Tobacco Use Types Packs/Day Years Used Date Smoking Tobacco: Never Assessed Comments Unknown Sex and Gender Information Value Date Recorded Sex Assigned at Not on file 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
--- OUTSIDE RECORDS SUMMARY | 2024-10-15 03:44 | XMS_ITS | Encounter Summary ---
Author Organization [facility] Address [address] [place] [address]. [place] [address] [place] [address] Care Team Providers Care Car Bracer Name Role Phone Unavailable Primary Care Provider Unavailabl e Encounter Details Date Type Department Care Team (Late st Contact Info) Description 05/07/[address] 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
--- OUTSIDE RECORDS SUMMARY | 2024-10-15 03:44 | XMS_ITS | Encounter Summary ---
Author Organization [facility] Address [address] [place] [address]. [place] [address] [place] [address] Care Team Providers Care Hr Business Partner Consultant Name Role Phone Unavailable Primary Care Provider Unavailabl e Encounter Details Date Type Department Care Team (Late st Contact Info) Description 04/14/[address] 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
--- OUTSIDE RECORDS SUMMARY | 2024-10-15 03:44 | XMS_ITS | Encounter Summary ---
Author Organization [facility] Address [address] [place] [address]. [place], [place] [address] [place] [address] Care Team Providers Care Watch Case Polisher Name Role Phone ToriKonrad marie Primary Care Provider [phone] Reason for Referral * Occupational Therapy (Routine) - Closed Specialty Diagnoses / Procedures Referred By Ambar mueller Referred To Contact Occupational Therapy Diagnoses Other closed intra-articular fracture of distal end of right radius with routine healing, subsequent encounter Trisha Lawson FNP-BC [address] [place] [address] Phone: tel: fax: Referral ID Status Reason Start Date Expiration Date V isits Requested Visits Authorized [id number] Closed Specialty Services 09/28/2021 10/29/2022 1 1 Scheduling Instructions Wean out of the Velcro brace DRY ROOM WORKER Reason for Visit * Reason Comments Fracture DOI:08/15/2021 RIGHT radius Encounter Details Date Type Department Care Team (Late st Contact Info) Description 09/28/2021 9:30 AM YARN DRY ROOM WORKER Office Visit [facility] [address] [place] [address], [facility] [address] [place] [address] Trisha Lawson FNP-BC [address] [address] Fracture (DOI:08/15/2021 RIGHT radius) Social History Tobacco Use Types Packs/Day Years Used Date Smoking Tobacco: Never Smokeless Tobacco: Never Alcohol Use Standard Drinks/Week Comments Not Currently 0 (1 standard drink = 0.6 oz pur e alcohol) Comments Unknown Sex and Gender Information Value Date Recorded Sex Assigned at Not on file Legal Sex Female 10:59 PM YARN DRY ROOM WORKER Gender Identity Not on file Sexual Orientation Not on file COVID-19 Exposure Response Date Recorded In the last month, have you been in contact with someone who was confirmed or suspected to have Coronavirus / COVID-19? No / Unsure 09/28/2021 9:14 AM YARN DRY ROOM WORKER documented as of this encounter Last Filed Vital Signs Vital Sign Reading Time Taken Comments Blood Pressure - - Pulse - - Temperature - - Respiratory Rate - - Oxygen Saturation - - Inhaled Oxygen Concentration - - Weight 77.1 kg (170 lb) 09/28/2021 9:31 AM YARN DRY ROOM WORKER Height 154.9 cm (5' 1 ) 09/28/2021 9:31 AM YARN DRY ROOM WORKER Body Mass Index 32.12 09/28/2021 9:31 AM YARN DRY ROOM WORKER documented in this encounter Progress Notes * Trisha Lawson, MORTGAGE ANALYST-BC - 09/28/2021 9:30 AM CST Chief Complaint: Fracture (DOI:08/15/2021 RIGHT radius) History of Present Illness: Eva Alatorre is a 81-year-old female who presents to the office for Fracture (DOI:08/15/2021 RIGHT radius) Patient comes in to clinic today for follow up of RIGHT distal radius fracture. She is in a short arm cast that will be removed prior to imaging. She reports occasional pain in the radial aspect of her RIGHT wrist. She denies any swelling, numbness or tingling. Denies night pain. She is taking Tylenol for pain with good relief. She is RIGHT hand dominant. She currently resides at the [facility]. Cast to right upper extremity is in good condition. Cast was removed without difficulty. Skin intact without abrasions, redness or wounds. Patient tolerated removal well. Previous HPI:08/31/2021 Patient states she had a fall in her bathroom at the [facility]. She notes she attempted to catch herself injuring RIGHT arm. She then followed up at [facility] and was placed in a splint. [...] index is 32.12 kg/m??. Last Recorded Weight 09/28/21 0931 Weight: 77.1 kg (170 lb) Physical exam: Constitutional: Alert and in no acute distress. Neurological: The patient was oriented to person, place, and time. Eyes: The sclera and conjunctiva were normal ENT: Hearing was normal. Neck: The appearance of the neck was normal. Cardiovascular: Normal pulses. Pulmonary: No respiratory distress. Skin: No injuries or skin lesion. Musculoskeletal: EXAM of RIGHT wrist today reveals minimal tenderness over distal radius with palpation, stiff range of motion, able to make a fist, no swelling, no ecchymosis, good capillary refill,neurovascularly intact. Results: XRAY of RIGHT wrist today reveals distal radius fracture in stable unchanged alignment with progressive healing but fracture line is still visible on imaging today. Assessment: Encounter Diagnose(s) ICD-10-CM ICD-9-CM SNOMED CT(R) 1. Other closed intra-articular fracture of distal end of right radius with routine healing, subsequent encounter S52.571D V54.12 CLOSED FRACTURE OF DISTAL END OF RADIUS Ambulatory referral to Occupational Therapy Plan: Reviewed imaging with patient in the office today. I have recommended a short arm Velcro splint since patient is still demonstrating some minimal tenderness over distal radius with palpation along with fracture line still visible on imaging. Patient may remove the brace for showers, dressing, and sleep and only to use with strenuous activities. I have recommended starting her in occupational therapy to work on her range of motion. She will follow-up in 4 weeks for reevaluation. Follow up: Return in about 4 weeks (around 10/26/2021) for Visit with Imaging (RIGHT wrist). TAZ DONOVAN DRY ROOM WORKER documented in this encounter Plan of Treatment Scheduled Referrals Name Type Priority Associated Diagnoses Orde r Schedule Ambulatory referral to Occupational Therapy Referral Routine Other closed intra-articular fracture of distal end of right radius with routine healing, subsequent encounter Ordered: 09/28/2021 documented as of this encounter Visit Diagnoses Diagnosis Other closed intra-articular fracture of distal end of right radius with routine healing, subsequent encounter- Primary documented in this encounter Care Teams Watch Case Polisher Relationship Specialty Start Date End Date Konrad Williamson DO [address] [place] [address] PCP - General FAMILY PRACTICE 08/31/21 documented as of this encounter
--- OUTSIDE RECORDS SUMMARY | 2024-10-15 03:44 | XMS_ITS | Encounter Summary ---
Author Organization [facility] Address [address] [place] [address]. [place] [address] [place] [address] Care Team Providers Care Welt Drawer Name Role Phone Unavailable Primary Care Provider Unavailabl e Encounter Details Date Type Department Care Team (Late st Contact Info) Description 09/29/[address] 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
--- OUTSIDE RECORDS SUMMARY | 2024-10-15 03:44 | XMS_ITS | Encounter Summary ---
Author Organization [facility] Address [address] [place] [address]. [place] [address] [place] [address] Care Team Providers Care Sales Development Executive Name Role Phone Unavailable Primary Care Provider Unavailabl e Encounter Details Date Type Department Care Team (Late st Contact Info) Description 05/26/[address] 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
--- OUTSIDE RECORDS SUMMARY | 2024-10-15 03:44 | XMS_ITS | Encounter Summary ---
Author Organization [facility] Address [address] [place] [address]. 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
--- OUTSIDE RECORDS SUMMARY | 2024-10-15 03:44 | XMS_ITS | Encounter Summary ---
Author Organization [facility] Address [address] [place] [address]. [place] [address] [place] [address] Care Team Providers Care Plate Mill Hand Name Role Phone Unavailable Primary Care Provider Unavailabl e Encounter Details Date Type Department Care Team (Late st Contact Info) Description 08/13/[address] 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
--- OUTSIDE RECORDS SUMMARY | 2024-10-15 03:44 | XMS_ITS | Encounter Summary ---
Author Organization [facility] Address [address] [place] [address]. [place] [address] [place] [address] Care Team Providers Care Sales Administration Manager Name Role Phone Unavailable Primary Care Provider Unavailabl e Encounter Details Date Type Department Care Team (Late st Contact Info) Description 06/12/[address] 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
--- OUTSIDE RECORDS SUMMARY | 2024-10-15 03:44 | XMS_ITS | Encounter Summary ---
Author Organization [facility] Address [address] [place] [address]. 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
--- OUTSIDE RECORDS SUMMARY | 2024-10-15 03:44 | XMS_ITS | Encounter Summary ---
Author Organization [facility] Address [address] [place] [address]. [place] [address] [place] [address] Care Team Providers Care Operations/Dispatch Name Role Phone Konrad Williamson DO Primary Care Provider [phone] Reason for Visit * Reason Comments ER Note (SCAN) Encounter Details Date Type Department Care Team ([facility] st Contact Info) Description 08/15/2021 Scan [facility] [address] [facility] [place] [address] Scanned, Documents ER Note (SCAN) Social History Tobacco Use Types Packs/Day Years Used Date Smoking Tobacco: Never Assessed Comments Unknown Sex and Gender Information Value Date Recorded Sex Assigned at Not on file Legal Sex Female 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
--- OUTSIDE RECORDS SUMMARY | 2024-10-15 03:44 | XMS_ITS | Encounter Summary ---
Author Organization [facility] Address [address] [place] [address]. 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 Exam time: 0857 hours. Clinical history: Fracture follow-up. Comparison: 08/15/2021 ([facility]). Technique: Three views. Findings: Mildly displaced and [...] hours. Clinical history: Fracture follow-up. Comparison: 08/15/2021 ([facility]). Technique: Three views. Findings: Mildly displaced and [...] By: Azar Lomeli MD, 08/31/2021 11:21 AM Chris Lawson INVESTIGATOR NARCOTICS-[facility] GENERAL IMAGING Final Resu lt documented in this encounter Visit Diagnoses Diagnosis Right wrist pain- Primary Pain in joint, forearm Right wrist pain Pain in joint, forearm documented in this encounter
--- OUTSIDE RECORDS SUMMARY | 2024-10-15 03:45 | XMS_ITS | Encounter Summary ---
Author Organization [facility] Address [address] [place] [address]. 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
--- OUTSIDE RECORDS SUMMARY | 2024-10-15 03:45 | XMS_ITS | Encounter Summary ---
Author Organization [facility] Address [address] [place] [address]. 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
--- OUTSIDE RECORDS SUMMARY | 2024-10-15 03:45 | XMS_ITS | Encounter Summary ---
Author Organization [facility] Address [address] [place] [address]. 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
--- OUTSIDE RECORDS SUMMARY | 2024-10-15 03:45 | XMS_ITS | Encounter Summary ---
Author Organization [facility] Address [address] [place] [address]. 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
--- OUTSIDE RECORDS SUMMARY | 2024-10-15 03:45 | XMS_ITS | Encounter Summary ---
Author Organization [facility] Address [address] [place] [address]. 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
--- OUTSIDE RECORDS SUMMARY | 2024-10-15 03:45 | XMS_ITS | Encounter Summary ---
Author Organization [facility] Address [address] [place] [address]. 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
--- OUTSIDE RECORDS SUMMARY | 2024-10-15 03:45 | XMS_ITS | Encounter Summary ---
Author Organization [facility] Address [address] [place] [address]. 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
--- OUTSIDE RECORDS SUMMARY | 2024-10-15 03:45 | XMS_ITS | Encounter Summary ---
Author Organization [facility] Address [address] [place] [address]. 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
--- OUTSIDE RECORDS SUMMARY | 2024-10-15 03:45 | XMS_ITS | Encounter Summary ---
Author Organization [facility] Address [address] [place] [address]. 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
--- OUTSIDE RECORDS SUMMARY | 2024-10-15 03:45 | XMS_ITS | Encounter Summary ---
Author Organization [facility] Address [address] [place] [address]. 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
--- OUTSIDE RECORDS SUMMARY | 2024-10-15 03:45 | XMS_ITS | Encounter Summary ---
Author Organization [facility] Address [address] [place] [address]. [place], [place] [address] [place] [address] Care Team Providers Care Director Digital Catalogue Name Role Phone Unavailable Primary Care Provider Unavailabl e Encounter Details Date Type Department Care Team (Late st Contact Info) Description 05/04/1996 Abstract [facility] CONVERSION [address] [place] [address] , Generic Conversion, Social History Tobacco Use Types Packs/Day Years Used Date Smoking Tobacco: Never Assessed Comments Unknown Sex and Gender Information Value Date Recorded Sex Assigned at Not on file Legal Sex Female 10:59 PM ORIENTATION AND MOBILITY SPECIALIST Gender Identity Not on file Sexual Orientation Not on file documented as of this encounter Plan of Treatment Not on file documented as of this encounter Visit Diagnoses Not on filedocumented in this encounter
--- OUTSIDE RECORDS SUMMARY | 2024-10-15 03:45 | XMS_ITS | Encounter Summary ---
Author Organization [facility] Address [address] [place] [address]. 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
== END 2024-10-10 21:00 | disposition home or self-care (01) ==
PROVIDERS: Emergency Provider Internal Medicine Critical Care Medicine; PCP Family Medicine
DX: M25.462 Effusion, left knee (principal); M25.562 Pain in left knee; I11.0 Hypertensive heart disease with heart failure; I50.9 Heart failure, unspecified
CPT/HCPCS: 73562; 96372; 99283; A9270; J1171